=== PATIENT | female | born 1945 | race African-American/Black ===

== ENCOUNTER 2017-02-18 17:10 | Emergency (ER) | payer MEDICARE, OTHER ==
[~2017-02-18] VITALS: Ht 152.4 cm; Wt 70.0 kg
[~2017-02-18 17:10] MED LIST: AMLO5TAB88 PO; CETI5TAB5 PO; DEXL60CA3 PO; FENO145 PO; FERR-43 PO; FLONAS NS; FLUT1DIS IH; HYDR-4092 PO; NITR0.4T SL; NITROPASTE TOP; OMEP20CA10 PO; PHEN100C4 PO; PRAV10TA35 PO; ZOLP10TA6 PO
[2017-02-18] MEDS ORDERED: HYDROCODONE/ACETAMINOPHEN 5/325MG TABLET PO STA (17:46)
[2017-02-18 18:13] LABS: BASOPHILS % 0.7 % (0.0-2.0); EOSINOPHILS % 1.8 % (0.0-5.0); HEMOGLOBIN. 11.1 g/dL (12.0-16.0); LYMPHOCYTES % 12.7 % (20.0-50.0); MEAN CORPUSCULAR HEMOGLOBIN 27.4 pg (28.0-32.0); MEAN CORPUSCULAR VOLUME 81.7 fL (81.0-99.0); MEAN PLATELET VOLUME 8.1 fl (7.4-10.4); MONOCYTES % 10.9 % (2.0-8.0); NEUTROPHILS % 73.9 % (40.0-76.0); PLATELET 324 x1000/uL (130-400); RED BLOOD CELL COUNT 4.04 mill/uL (4.2-5.4); RED CELL DISTRIBUTION WIDTH 15.8 % (11.6-14.6)
[2017-02-18 18:15] LABS: CHLORIDE 112 mEq/L (98-107)
[2017-02-18 18:16] LABS: INR 0.9; PROTHROMBIN TIME 9.6 sec
[2017-02-18 18:18] LABS: CARBON DIOXIDE 19 mEq/L (21-32)
[2017-02-18 18:26] LABS: TROPONIN I 0.02 ng/mL (0.00-0.04)
[2017-02-18 21:20] VITALS: BP 158/80
== END 2017-02-18 22:30 | disposition home or self-care (01) ==
LOC: ER 17:10
DX: R07.89 Other chest pain (principal); M79.601 Pain in right arm; M79.602 Pain in left arm; D72.829 Elevated white blood cell count, unspecified; R74.8 Abnormal levels of other serum enzymes; R79.89 Other specified abnormal findings of blood chemistry; Z79.899 Other long term (current) drug therapy; Z88.6 Allergy status to analgesic agent; Z88.5 Allergy status to narcotic agent; Z88.8 Allergy status to other drugs, medicaments and biological substances; Z91.013 Allergy to seafood
CPT/HCPCS: 36415; 71010; 80053; 83880; 84484; 85025; 85610; 93005; 99285

== ENCOUNTER 2017-06-11 18:56 | Inpatient (IN) | payer MEDICARE, MEDICAID, OTHER ==
[~2017-06-11] VITALS: Ht 167.6 cm; Wt 78.0 kg
[2017-06-11 23:16] LABS: EOSINOPHILS % 1.6 % (0.0-5.0); HEMATOCRIT. 35.4 % (36.0-48.0); HEMOGLOBIN. 11.6 g/dL (12.0-16.0); LYMPHOCYTES % 13.9 % (20.0-50.0); MEAN CORPUSCULAR HEMOGLOBIN 27.7 pg (28.0-32.0); MEAN CORPUSCULAR VOLUME 84.5 fL (81.0-99.0); MEAN PLATELET VOLUME 8.2 fl (7.4-10.4); NEUTROPHILS % 75.5 % (40.0-76.0); PLATELET 337 x1000/uL (130-400); RED BLOOD CELL COUNT 4.19 mill/uL (4.2-5.4); RED CELL DISTRIBUTION WIDTH 14.1 % (11.6-14.6)
[2017-06-11 23:23] LABS: PARTIAL THROMBOPLASTIN TIME 25.7 sec (23.4-31.0); PROTHROMBIN TIME 10.1 sec (9.4-11.6)
[2017-06-11 23:31] LABS: CARBON DIOXIDE 19 mEq/L (21-32); CHLORIDE 114 mEq/L (98-107); TROPONIN I < 0.02 ng/mL (0.00-0.04)
[2017-06-12] VITALS (13 sets, daily range): BP systolic 137–190; BP diastolic 52–103
[2017-06-12] MEDS ORDERED: CLOPIDOGREL 75MG TABLET PO ONE
[2017-06-12] MEDS ORDERED: CLONIDINE 0.1MG TABLET PO PRN ×2 (06:00→09:00)
[2017-06-12] MEDS ORDERED: AMLODIPINE 5MG TABLET PO SCH ×2 (06:00→11:00)
[2017-06-12] MEDS ORDERED: NITROGLYCERIN 0.4MG TABLET SL SL PRN (06:00)
[2017-06-12] MEDS ORDERED: CLONIDINE 0.1MG TABLET PO SCH (06:00)
[2017-06-12] MEDS ORDERED: LABETALOL 5MG/ML SYR 20 MG/4 ML SYRINGE IV SCH (06:00)
[2017-06-12] MEDS ORDERED: LOSARTAN POTASSIUM 25 MG TABLET PO SCH (07:00)
[2017-06-12] MEDS ORDERED: ONDANSETRON HCL 4MG/2ML VIAL IV PRN (09:00)
[2017-06-12] MEDS ORDERED: ACETAMINOPHEN 325MG TABLET PO PRN (09:00)
[2017-06-12] MEDS ORDERED: LORAZEPAM 0.5MG TABLET PO PRN (09:00)
[2017-06-12] MEDS ORDERED: HYDROMORPHONE HCL/PF 2MG/ML CPJ IV PRN (09:00)
[2017-06-12] MEDS ORDERED: PANTOPRAZOLE 40MG DR TABLET PO ONE (09:15)
[2017-06-12] MEDS ORDERED: OMEPRAZOLE 20MG CAPSULE EXTENDED RELEASE PO SCH ×2 (09:15)
[2017-06-12] MEDS: LOSARTAN POTASSIUM 50 MG TABLET PO SCH (10:44)
[2017-06-12] MEDS ORDERED: NITROGLYCERIN 0.4MG/HR PATCH TOP SCH (11:00)
[2017-06-12] MEDS ORDERED: SODIUM CHL 0.45% + KCL 20MEQ/L 1,000 ML IV SCH (11:00)
[2017-06-12] MEDS ORDERED: DEXTROSE 50% WATER 50ML SYRINGE IV PRN (12:00)
[2017-06-12 12:05] LABS: CHLORIDE 113 mEq/L (98-107)
[2017-06-12] MEDS: INSULIN LISPRO 100 UNITS/ML SUBCUT SCH ×4 (12:17→20:46)
[2017-06-12] MEDS: BLOOD SUGAR DIAGNOSTIC STRIP TEST SCH ×3 (12:17→20:34)
[2017-06-12 12:22] LABS: CARBON DIOXIDE 18 mEq/L (21-32); HDL CHOLESTEROL 39 mg/dL (40-59); LDL CHOLESTEROL 96 mg/dL (5-100)
[2017-06-12] MEDS ORDERED: DIPHENHYDRAMINE 50MG/ML VIAL ONE (12:42)
[2017-06-12] MEDS ORDERED: DEXAMETHASONE 4MG/ML 1ML VIAL ONE (12:56)
[2017-06-12] MEDS ORDERED: EPINEPHRINE 1:1000 1 MG/ML AMP IM SCH (13:00)
[2017-06-12] MEDS ORDERED: RACEPINEPHRINE 2.25% 0.5ML NEB VIAL HHN PRN (13:00)
[2017-06-12] MEDS ORDERED: DEXAMETHASONE 10 MG/ML VIAL IV SCH (13:00)
[2017-06-12] MEDS ORDERED: EPINEPHRINE 1:1000 1 MG/ML AMP IM ONE (13:00)
[2017-06-12] MEDS ORDERED: IPRATROPIUM/ALBUTEROL 0.5-3(2.5)MG/3ML NEB HHN PRN ×2 (13:00)
[2017-06-12] MEDS ORDERED: DIPHENHYDRAMINE 50MG/ML VIAL IV SCH (13:00)
[2017-06-12] MEDS ORDERED: DIPHENHYDRAMINE 50MG/ML VIAL IV PRN (13:30)
[2017-06-12] MEDS ORDERED: NON FORMULARY PATIENT HOME MED EA XX SCH (13:30)
[2017-06-12] MEDS ORDERED: MEDICATION NOT ON FORMULARY EA (Dexlansoprazole (Dexilant) 60 MG) PO SCH (13:30)
[2017-06-12 13:36] LABS: BG BASE EXCESS -7.4 mmol/L (-2.0-2.0); BG CARBOXYHEMOGLOBIN 0.1 % (0.5-1.5); BG DEOXYHEMOGLOBIN 2.2 % (0.0-5.0); BG HCO3 ACT 17.7 mmol/L (22.0-26.0); BG METHEMOGLOBIN 0.4 % (0.0-1.5); BG OXYGEN SATURATION 97.8 % (92.0-98.5); BG OXYHEMOGLOBIN 97.3 % (94.0-97.0); BG PCO2 34.6 mmHg (35.0-45.0); BG PH 7.326 (7.350-7.450); BG PO2 105.5 mmHg (75.0-100.0); BG SAMPLE SITE RIGHT RADIAL; BG TOTAL HEMOGLOBIN 12.4 g/dL (12.0-18.0); BG VENT MODE NASAL CANNULA
[2017-06-12] MEDS: PHENYTOIN SODIUM EXTENDED 100MG CAPSULE PO SCH ×2 (14:44→21:51)
[2017-06-12] MEDS: SODIUM CHLORIDE 0.45% 1,000 ML IV SCH (14:44)
[2017-06-12 15:31] LABS: BASOPHILS % 0.3 % (0.0-2.0); EOSINOPHILS % 0.3 % (0.0-5.0); HEMATOCRIT. 33.8 % (36.0-48.0); HEMOGLOBIN. 11.2 g/dL (12.0-16.0); LYMPHOCYTES % 20.6 % (20.0-50.0); MEAN CORPUSCULAR HEMOGLOBIN 28.1 pg (28.0-32.0); MEAN CORPUSCULAR VOLUME 84.8 fL (81.0-99.0); MEAN PLATELET VOLUME 8.6 fl (7.4-10.4); NEUTROPHILS % 69.8 % (40.0-76.0); PLATELET 345 x1000/uL (130-400); RED BLOOD CELL COUNT 3.98 mill/uL (4.2-5.4); RED CELL DISTRIBUTION WIDTH 14.1 % (11.6-14.6)
[2017-06-12 15:51] LABS: TROPONIN I < 0.02 ng/mL (0.00-0.04)
[2017-06-12] MEDS ORDERED: ENOXAPARIN 30MG/0.3ML SYR SUBCUT SCH (17:00)
[2017-06-12] MEDS: HYDRALAZINE 20MG/ML VIAL IV SCH (17:57)
[2017-06-12 18:55] LABS: CLARITY URINE CLEAR (CLEAR); COLOR URINE YELLOW (YELLOW); GLUCOSE URINE NEGATIVE (NEGATIVE); KETONES URINE NEGATIVE (NEGATIVE); LEUKOCYTE ESTERASE URINE NEGATIVE (NEGATIVE); NITRITE URINE NEGATIVE (NEGATIVE); OCCULT BLOOD URINE TRACE (NEGATIVE); PROTEIN URINE 3+ (NEGATIVE); SPECIFIC GRAVITY URINE 1.013 (1.005-1.030); UROBILINOGEN URINE 0.2 E.U./dL (0.2-1.0)
[2017-06-12 19:06] LABS: *AMPHETAMINES SCREEN URINE NEGATIVE (NEGATIVE); *BARBITURATES SCREEN URINE NEGATIVE (NEGATIVE); *BENZODIAZEPINES SCREEN URINE NEGATIVE (NEGATIVE); *COCAINE SCREEN URINE NEGATIVE (NEGATIVE); CANNABINOID URINE SCREEN NEGATIVE (NEGATIVE); METHADONE URINE SCREEN NEGATIVE (NEGATIVE); OPIATES URINE SCREEN NEGATIVE (NEGATIVE); PHENCYCLIDINE URINE SCREEN NEGATIVE (NEGATIVE)
[2017-06-12] MEDS: ATORVASTATIN CALCIUM 10MG TABLET PO SCH (20:34)
[2017-06-12] MEDS: FAMOTIDINE 20MG TABLET PO SCH (20:34)
[2017-06-12] MEDS: AMLODIPINE 5MG TABLET PO SCH (20:34)
[2017-06-12] MEDS: HYDRALAZINE HCL 25MG TABLET PO SCH (21:51)
[2017-06-12 23:21] LABS: CREATINE KINASE MB FRACTION 1.9 ng/mL (0.5-3.6); TROPONIN I 0.06 ng/mL (0.00-0.04)
[2017-06-13] VITALS (17 sets, daily range): BP systolic 119–154; BP diastolic 47–89
[2017-06-13] MEDS: SODIUM CHLORIDE 0.45% 1,000 ML IV SCH ×2 (00:13→09:55)
[2017-06-13] MEDS: PHENYTOIN SODIUM EXTENDED 100MG CAPSULE PO SCH ×3 (06:00→22:00)
[2017-06-13] MEDS: HYDRALAZINE 20MG/ML VIAL IV SCH ×3 (06:00→12:00)
[2017-06-13] MEDS: HYDRALAZINE HCL 25MG TABLET PO SCH ×3 (06:06→21:52)
[2017-06-13 06:07] LABS: BASOPHILS % 0.8 % (0.0-2.0); EOSINOPHILS % 1.3 % (0.0-5.0); HEMATOCRIT. 32.8 % (36.0-48.0); LYMPHOCYTES % 12.8 % (20.0-50.0); MEAN CORPUSCULAR HEMOGLOBIN 27.9 pg (28.0-32.0); MEAN CORPUSCULAR VOLUME 83.4 fL (81.0-99.0); MEAN PLATELET VOLUME 8.8 fl (7.4-10.4); MONOCYTES % 9.6 % (2.0-8.0); NEUTROPHILS % 75.5 % (40.0-76.0); PLATELET 322 x1000/uL (130-400); RED BLOOD CELL COUNT 3.93 mill/uL (4.2-5.4)
[2017-06-13 06:44] LABS: CHLORIDE 114 mEq/L (98-107)
[2017-06-13 06:58] LABS: CARBON DIOXIDE 17 mEq/L (21-32); PHOSPHORUS 3.7 mg/dL (2.5-4.9); TROPONIN I 0.04 ng/mL (0.00-0.04)
[2017-06-13] MEDS ORDERED: PANTOPRAZOLE 40MG DR TABLET PO SCH (07:50)
[2017-06-13] MEDS: LOSARTAN POTASSIUM 50 MG TABLET PO SCH (08:11)
[2017-06-13] MEDS: AMLODIPINE 5MG TABLET PO SCH ×2 (08:11→21:59)
[2017-06-13] MEDS ORDERED: LOSARTAN POTASSIUM 25 MG TABLET PO SCH (09:00)
[2017-06-13] MEDS: NITROGLYCERIN 0.4MG/HR PATCH TOP SCH (09:56)
[2017-06-13] MEDS: ATORVASTATIN CALCIUM 10MG TABLET PO SCH (21:52)
[2017-06-13] MEDS: FAMOTIDINE 20MG TABLET PO SCH (21:52)
[2017-06-14] VITALS (11 sets, daily range): BP systolic 108–161; BP diastolic 52–116
[2017-06-14] MEDS: ZOLPIDEM TARTRATE 5MG TABLET PO PRN (03:14)
[2017-06-14] MEDS: SODIUM CHLORIDE 0.45% 1,000 ML IV SCH ×2 (03:18→15:30)
[2017-06-14] MEDS ORDERED: DEXL60CA3 PO (04:51)
[2017-06-14] MEDS: PHENYTOIN SODIUM EXTENDED 100MG CAPSULE PO SCH ×3 (06:00→22:03)
[2017-06-14] MEDS: HYDRALAZINE HCL 25MG TABLET PO SCH ×3 (06:26→22:03)
[2017-06-14] MEDS: HYDROCODONE/ACETAMINOPHEN 5/325MG TABLET PO PRN (06:27)
[2017-06-14 07:37] LABS: BASOPHILS % 0.5 % (0.0-2.0); EOSINOPHILS % 1.1 % (0.0-5.0); HEMATOCRIT. 34.2 % (36.0-48.0); HEMOGLOBIN. 11.3 g/dL (12.0-16.0); LYMPHOCYTES % 13.1 % (20.0-50.0); MEAN CORPUSCULAR HEMOGLOBIN 28.1 pg (28.0-32.0); MEAN CORPUSCULAR VOLUME 84.5 fL (81.0-99.0); MEAN PLATELET VOLUME 8.9 fl (7.4-10.4); MONOCYTES % 8.7 % (2.0-8.0); NEUTROPHILS % 76.6 % (40.0-76.0); PLATELET 313 x1000/uL (130-400); RED BLOOD CELL COUNT 4.04 mill/uL (4.2-5.4); RED CELL DISTRIBUTION WIDTH 14.2 % (11.6-14.6)
[2017-06-14] MEDS: LOSARTAN POTASSIUM 50 MG TABLET PO SCH (09:02)
[2017-06-14] MEDS: AMLODIPINE 5MG TABLET PO SCH ×2 (09:02→22:03)
[2017-06-14] MEDS: NITROGLYCERIN 0.4MG/HR PATCH TOP SCH (09:03)
[2017-06-14] MEDS ORDERED: GUAIFENESIN 200MG/10ML SUGAR FREE UDC PO PRN (11:00)
[2017-06-14] MEDS ORDERED: PIPERACILLIN/TAZ 2.25G PREMIX 50 ML IV SCH (12:30)
[2017-06-14] MEDS: SODIUM CHLORIDE 45ML SPRAY NS SCH (16:20)
[2017-06-14] MEDS: PIPERACILLIN/TAZ 2.25G PREMIX 50 ML IV SCH (17:55)
[2017-06-14] MEDS: ATORVASTATIN CALCIUM 10MG TABLET PO SCH (22:03)
[2017-06-14] MEDS: FAMOTIDINE 20MG TABLET PO SCH (22:03)
[2017-06-15] VITALS (12 sets, daily range): BP systolic 109–169; BP diastolic 60–80
[2017-06-15] MEDS: PIPERACILLIN/TAZ 2.25G PREMIX 50 ML IV SCH ×2 (01:00→06:19)
[2017-06-15] MEDS: SODIUM CHLORIDE 45ML SPRAY NS SCH ×4 (01:00→22:49)
[2017-06-15] MEDS: ZOLPIDEM TARTRATE 5MG TABLET PO PRN (01:32)
[2017-06-15] MEDS: SODIUM CHLORIDE 0.45% 1,000 ML IV SCH ×2 (01:32→11:30)
[2017-06-15] MEDS: PHENYTOIN SODIUM EXTENDED 100MG CAPSULE PO SCH ×4 (06:19→21:04)
[2017-06-15] MEDS: HYDRALAZINE HCL 25MG TABLET PO SCH ×3 (06:20→21:26)
[2017-06-15 06:29] LABS: HEMATOCRIT. 32.6 % (36.0-48.0); HEMOGLOBIN. 10.9 g/dL (12.0-16.0); LYMPHOCYTES % 15.4 % (20.0-50.0); MEAN CORPUSCULAR HEMOGLOBIN 28.1 pg (28.0-32.0); MEAN CORPUSCULAR VOLUME 83.6 fL (81.0-99.0); MEAN PLATELET VOLUME 8.6 fl (7.4-10.4); NEUTROPHILS % 72.6 % (40.0-76.0); PLATELET 331 x1000/uL (130-400); RED CELL DISTRIBUTION WIDTH 14.2 % (11.6-14.6)
[2017-06-15] MEDS: AMLODIPINE 5MG TABLET PO SCH ×2 (08:43→21:26)
[2017-06-15] MEDS: NITROGLYCERIN 0.4MG/HR PATCH TOP SCH (08:43)
[2017-06-15] MEDS: LOSARTAN POTASSIUM 50 MG TABLET PO SCH (08:43)
[2017-06-15] MEDS ORDERED: LEVOFLOXACIN 500MG TABLET PO SCH (12:00)
[2017-06-15] MEDS: IPRATROPIUM/ALBUTEROL 0.5-3(2.5)MG/3ML NEB HHN SCH ×2 (14:43→21:28)
[2017-06-15 16:15] LABS: CLARITY URINE CLEAR (CLEAR); COLOR URINE YELLOW (YELLOW); GLUCOSE URINE NEGATIVE (NEGATIVE); KETONES URINE NEGATIVE (NEGATIVE); LEUKOCYTE ESTERASE URINE NEGATIVE (NEGATIVE); NITRITE URINE NEGATIVE (NEGATIVE); OCCULT BLOOD URINE NEGATIVE (NEGATIVE); PH URINE 5.5 (4.5-8.0); PROTEIN URINE 3+ (NEGATIVE); SPECIFIC GRAVITY URINE 1.013 (1.005-1.030); UROBILINOGEN URINE 0.2 E.U./dL (0.2-1.0)
[2017-06-15] MEDS: FAMOTIDINE 20MG TABLET PO SCH (21:25)
[2017-06-15] MEDS: ATORVASTATIN CALCIUM 10MG TABLET PO SCH (21:26)
[2017-06-15] MEDS: HYDROCODONE/ACETAMINOPHEN 5/325MG TABLET PO PRN (21:26)
[2017-06-16] VITALS (7 sets, daily range): BP systolic 103–178; BP diastolic 58–76
[2017-06-16] MEDS: HYDROCODONE/ACETAMINOPHEN 5/325MG TABLET PO PRN (02:06)
[2017-06-16] MEDS: IPRATROPIUM/ALBUTEROL 0.5-3(2.5)MG/3ML NEB HHN SCH ×2 (03:34→08:24)
[2017-06-16] MEDS: PHENYTOIN SODIUM EXTENDED 100MG CAPSULE PO SCH (06:00)
[2017-06-16] MEDS: SODIUM CHLORIDE 0.45% 1,000 ML IV SCH (06:05)
[2017-06-16] MEDS: HYDRALAZINE HCL 25MG TABLET PO SCH (06:15)
[2017-06-16 06:35] LABS: BASOPHILS % 0.8 % (0.0-2.0); EOSINOPHILS % 1.6 % (0.0-5.0); HEMATOCRIT. 32.4 % (36.0-48.0); HEMOGLOBIN. 10.8 g/dL (12.0-16.0); LYMPHOCYTES % 13.9 % (20.0-50.0); MEAN CORPUSCULAR HEMOGLOBIN 27.8 pg (28.0-32.0); MEAN CORPUSCULAR VOLUME 83.8 fL (81.0-99.0); MEAN PLATELET VOLUME 8.8 fl (7.4-10.4); MONOCYTES % 10.2 % (2.0-8.0); NEUTROPHILS % 73.5 % (40.0-76.0); PLATELET 321 x1000/uL (130-400); RED BLOOD CELL COUNT 3.87 mill/uL (4.2-5.4); RED CELL DISTRIBUTION WIDTH 14.2 % (11.6-14.6)
[2017-06-16] MEDS: SODIUM CHLORIDE 45ML SPRAY NS SCH (06:44)
[2017-06-16 07:04] LABS: HEPATITIS B SURFACE ANTIGEN NEGATIVE
[2017-06-16] MEDS: LOSARTAN POTASSIUM 50 MG TABLET PO SCH (08:51)
[2017-06-16] MEDS: AMLODIPINE 5MG TABLET PO SCH (08:51)
[2017-06-16] MEDS: NITROGLYCERIN 0.4MG/HR PATCH TOP SCH (08:51)
[2017-06-16] MEDS ORDERED: LEVOFLOXACIN 250MG TABLET PO SCH (11:00)
[2017-06-16 13:09] LABS: ALBUMIN 3.5 g/dL (2.9-4.4); ALPHA-1-GLOBULIN 0.2 g/dL (0.0-0.4); ALPHA-2-GLOBULIN 0.9 g/dL (0.4-1.0); BETA GLOBULIN 0.9 g/dL (0.7-1.3); GAMMA GLOBULINS 1.7 g/dL (0.4-1.8); GLOBULIN TOTAL 3.6 g/dL (2.2-3.9); M-SPIKE Not Observed g/dL (Not Observed); TOTAL PROTEIN SERUM 7.1 g/dL (6.0-8.5)
[2017-06-18 09:06] LABS: COMPLEMENT C3 120 mg/dL (82-167); GLOMERULAR BASEMENT MEMB AB 4 units (0-20)
[2017-06-18 13:12] LABS: ANTI-MYELOPEROXIDASE AB < 9.0 U/mL (0.0-9.0); ANTI-PROTEINASE 3 ABS < 3.5 U/mL (0.0-3.5)
[2017-06-18 15:07] LABS: COMPLEMENT TOTAL CH50 > 60 U/mL (42-60)
[2017-06-19 04:19] LABS: OVA & PARASITE EXAM Final report (.)
[2017-06-19 07:13] LABS: DOPAMINE PLASMA <30 pg/mL (0-48); EPINEPHRINE PLASMA 24 pg/mL (0-62); NOREPINEPHRINE PLASMA 591 pg/mL (0-874)
[2017-06-19 15:12] LABS: ATYPICAL P-ANCA <1:20 titer (Neg:<1:20); CYTOPLASMIC C-ANCA <1:20 titer (Neg:<1:20); PERINUCLEAR P-ANCA <1:20 titer (Neg:<1:20)
== END 2017-06-16 11:28 | disposition home or self-care (01) | DRG 280 ==
LOC: ER 20:30 → 6WST 23:53 → ENRESERV 06-12 07:00 → CVICU 06-12 13:05 → 5EST 06-13 11:06
PROVIDERS: ADMIT Internal Medicine Geriatric Medicine; ATTEND Internal Medicine Geriatric Medicine
DX: I21.4 Non-ST elevation (NSTEMI) myocardial infarction (principal); N17.0 Acute kidney failure with tubular necrosis; J96.00 Acute respiratory failure, unspecified whether with hypoxia or hypercapnia; E87.2 Acidosis; E46 Unspecified protein-calorie malnutrition; K75.9 Inflammatory liver disease, unspecified; N18.3 Chronic kidney disease, stage 3 (moderate); R16.0 Hepatomegaly, not elsewhere classified; I13.0 Hypertensive heart and chronic kidney disease with heart failure and stage 1 through stage 4 chronic kidney disease, or unspecified chronic kidney disease; I50.30 Unspecified diastolic (congestive) heart failure; T78.2XXA Anaphylactic shock, unspecified, initial encounter; I42.9 Cardiomyopathy, unspecified; I24.9 Acute ischemic heart disease, unspecified; M19.90 Unspecified osteoarthritis, unspecified site; F41.9 Anxiety disorder, unspecified; E86.0 Dehydration; E11.22 Type 2 diabetes mellitus with diabetic chronic kidney disease; G40.909 Epilepsy, unspecified, not intractable, without status epilepticus; E78.5 Hyperlipidemia, unspecified; J44.9 Chronic obstructive pulmonary disease, unspecified; N28.1 Cyst of kidney, acquired; D72.829 Elevated white blood cell count, unspecified; R31.9 Hematuria, unspecified; E87.8 Other disorders of electrolyte and fluid balance, not elsewhere classified; J30.1 Allergic rhinitis due to pollen; F17.210 Nicotine dependence, cigarettes, uncomplicated; I25.10 Atherosclerotic heart disease of native coronary artery without angina pectoris; J98.01 Acute bronchospasm; K21.9 Gastro-esophageal reflux disease without esophagitis; K52.9 Noninfective gastroenteritis and colitis, unspecified; L29.9 Pruritus, unspecified; M94.0 Chondrocostal junction syndrome [Tietze]; Z79.899 Other long term (current) drug therapy; Z82.49 Family history of ischemic heart disease and other diseases of the circulatory system; Z87.11 Personal history of peptic ulcer disease; Z88.5 Allergy status to narcotic agent; Z88.8 Allergy status to other drugs, medicaments and biological substances; Z91.19 Patient's noncompliance with other medical treatment and regimen; Z90.49 Acquired absence of other specified parts of digestive tract; Z68.27 Body mass index [BMI] 27.0-27.9, adult; Z88.6 Allergy status to analgesic agent; Z91.041 Radiographic dye allergy status; Z91.013 Allergy to seafood; Z79.1 Long term (current) use of non-steroidal anti-inflammatories (NSAID); Z90.710 Acquired absence of both cervix and uterus
CPT/HCPCS: 36415; 36600; 71010; 74000; 76700; 80048; 80053; 80061; 80185; 80305; 81001; 82270; 82375; 82553; 82570; 82595; 82805; 82962; 83036; 83520; 83690; 83735; 84100; 84155; 84156; 84165; 84443; 84484; 84550; 85025; 85610; 85651; 85730; 86038; 86160; 86162; 86256; 86430; 86592; 86803; 87015; 87040; 87045; 87070; 87086; 87177; 87186; 87209; 87340; 87427; 87449; 87493; 89055; 93005; 93306; 93970; 94640; 94664; 99285; J0171; J0360; J1100; J1200; J1650; J2405; J2543; J3480; J7030; J7620; A4315

== ENCOUNTER 2017-07-01 09:33 | Inpatient (IN) | payer MEDICARE, OTHER ==
[~2017-07-01] VITALS: Ht 154.9 cm; Wt 73.9 kg
[~2017-07-01 09:33] MED LIST changes: -AMLO5TAB88 PO
[2017-07-01 10:30] LABS: BASOPHILS % 0.6 % (0.0-2.0); EOSINOPHILS % 1.1 % (0.0-5.0); HEMATOCRIT. 33.3 % (36.0-48.0); LYMPHOCYTES % 8.1 % (20.0-50.0); MEAN CORPUSCULAR VOLUME 84.3 fL (81.0-99.0); MEAN PLATELET VOLUME 8.2 fl (7.4-10.4); NEUTROPHILS % 84.2 % (40.0-76.0); PLATELET 354 x1000/uL (130-400); RED BLOOD CELL COUNT 3.95 mill/uL (4.2-5.4); RED CELL DISTRIBUTION WIDTH 14.5 % (11.6-14.6)
[2017-07-01 10:40] LABS: PARTIAL THROMBOPLASTIN TIME 25.7 sec (23.4-31.0); PROTHROMBIN TIME 10.1 sec (9.4-11.6)
[2017-07-01 10:44] LABS: CARBON DIOXIDE 20 mEq/L (21-32); CHLORIDE 109 mEq/L (98-107)
[2017-07-01 10:48] LABS: TROPONIN I 0.04 ng/mL (0.00-0.04)
[2017-07-01] MEDS ORDERED: ENOXAPARIN 60MG/0.6ML SYR SUBCUT ONE (11:00)
[2017-07-01] MEDS: NITROGLYCERIN 0.4MG TABLET SL SL PRN ×3 (14:36→16:38)
[2017-07-01] MEDS: CLONIDINE 0.1MG TABLET PO SCH ×3 (15:22→23:27)
[2017-07-01 17:21] VITALS: BP 173/64
[2017-07-01] MEDS ORDERED: MAGNESIUM/ALUMINUM HYDROXIDE/SIMETHICONE 30ML UDC PO PRN (18:15)
[2017-07-01] MEDS ORDERED: ONDANSETRON HCL 4MG/2ML VIAL IV PRN (18:15)
[2017-07-01] MEDS ORDERED: CLONIDINE 0.1MG TABLET PO PRN (18:15)
[2017-07-01] MEDS ORDERED: IPRATROPIUM/ALBUTEROL 0.5-3(2.5)MG/3ML NEB INH PRN (18:15)
[2017-07-01] MEDS ORDERED: HYDROMORPHONE HCL/PF 2MG/ML CPJ IV PRN (18:15)
[2017-07-01] MEDS ORDERED: ENOXAPARIN 40MG/0.4ML SYR SUBCUT SCH (18:15)
[2017-07-01] MEDS ORDERED: ZOLPIDEM TARTRATE 5MG TABLET PO PRN (18:15)
[2017-07-01 18:17] VITALS: BP 173/64
[2017-07-01] MEDS ORDERED: NIFEDIPINE XL 60MG TAB PO NR (18:22)
[2017-07-01 20:00] VITALS: BP 142/61
[2017-07-01] MEDS ORDERED: ENOXAPARIN 30MG/0.3ML SYR SUBCUT SCH (20:00)
[2017-07-01] MEDS ORDERED: NITROGLYCERIN 0.4MG/HR PATCH TOP NR (20:00)
[2017-07-01] MEDS: AMLODIPINE 5MG TABLET PO SCH (20:48)
[2017-07-01] MEDS: SODIUM CHLORIDE 0.45% 1,000 ML IV SCH (20:48)
[2017-07-01] MEDS: HYDRALAZINE HCL 50MG TABLET PO SCH (20:56)
[2017-07-02] VITALS (9 sets, daily range): BP systolic 132–177; BP diastolic 55–85
[2017-07-02 00:45] LABS: CREATINE KINASE MB FRACTION 1.5 ng/mL (0.5-3.6); TROPONIN I 0.13 ng/mL (0.00-0.04)
[2017-07-02] MEDS: HYDRALAZINE HCL 50MG TABLET PO SCH ×3 (05:08→21:25)
[2017-07-02] MEDS: CLONIDINE 0.1MG TABLET PO SCH ×3 (05:08→17:23)
[2017-07-02] MEDS ORDERED: SODIUM CHLORIDE 0.45% 1,000 ML IV ONE (06:00)
[2017-07-02 06:33] LABS: BASOPHILS % 0.6 % (0.0-2.0); EOSINOPHILS % 1.2 % (0.0-5.0); HEMATOCRIT. 29.8 % (36.0-48.0); HEMOGLOBIN. 9.9 g/dL (12.0-16.0); LYMPHOCYTES % 13.1 % (20.0-50.0); MEAN CORPUSCULAR HEMOGLOBIN 28.1 pg (28.0-32.0); MEAN CORPUSCULAR VOLUME 84.7 fL (81.0-99.0); MEAN PLATELET VOLUME 8.9 fl (7.4-10.4); MONOCYTES % 8.3 % (2.0-8.0); NEUTROPHILS % 76.8 % (40.0-76.0); PLATELET 350 x1000/uL (130-400); RED BLOOD CELL COUNT 3.52 mill/uL (4.2-5.4); RED CELL DISTRIBUTION WIDTH 14.8 % (11.6-14.6)
[2017-07-02 07:02] LABS: CARBON DIOXIDE 22 mEq/L (21-32); CHLORIDE 109 mEq/L (98-107); PHOSPHORUS 4.3 mg/dL (2.5-4.9)
[2017-07-02 07:09] LABS: CREATINE KINASE MB FRACTION 1.3 ng/mL (0.5-3.6)
[2017-07-02] MEDS: SODIUM CHLORIDE 0.45% 1,000 ML IV SCH ×2 (07:20→17:23)
[2017-07-02 07:30] LABS: CLARITY URINE CLEAR (CLEAR); COLOR URINE YELLOW (YELLOW); GLUCOSE URINE NEGATIVE (NEGATIVE); KETONES URINE NEGATIVE (NEGATIVE); LEUKOCYTE ESTERASE URINE NEGATIVE (NEGATIVE); NITRITE URINE NEGATIVE (NEGATIVE); OCCULT BLOOD URINE NEGATIVE (NEGATIVE); PH URINE 5.5 (4.5-8.0); PROTEIN URINE 3+ (NEGATIVE); SPECIFIC GRAVITY URINE 1.011 (1.005-1.030); UROBILINOGEN URINE 0.2 E.U./dL (0.2-1.0)
[2017-07-02 07:47] LABS: *AMPHETAMINES SCREEN URINE NEGATIVE (NEGATIVE); *BARBITURATES SCREEN URINE NEGATIVE (NEGATIVE); *BENZODIAZEPINES SCREEN URINE NEGATIVE (NEGATIVE); *COCAINE SCREEN URINE NEGATIVE (NEGATIVE); CANNABINOID URINE SCREEN NEGATIVE (NEGATIVE); METHADONE URINE SCREEN NEGATIVE (NEGATIVE); OPIATES URINE SCREEN PRESUMTIVE POSITIVE (NEGATIVE); PHENCYCLIDINE URINE SCREEN NEGATIVE (NEGATIVE)
[2017-07-02] MEDS ORDERED: FAMOTIDINE 20MG/2ML VIAL IV ONE (08:20)
[2017-07-02] MEDS ORDERED: DIPHENHYDRAMINE 50MG/ML VIAL ONE (08:20)
[2017-07-02] MEDS ORDERED: MIDAZOLAM HCL 2 MG/2 ML VIAL ONE (08:25)
[2017-07-02] MEDS ORDERED: FENTANYL CITRATE/PF 50MCG/ML 2ML VIAL ONE (08:25)
[2017-07-02] MEDS ORDERED: ATROPINE SULFATE 0.1MG/ML 10ML DISP.SYRIN ONE (08:52)
[2017-07-02] MEDS: AMLODIPINE 5MG TABLET PO SCH (09:00)
[2017-07-02] MEDS: NITROGLYCERIN 0.4MG/HR PATCH TOP SCH (09:00)
[2017-07-02] MEDS: NIFEDIPINE XL 60MG TAB PO SCH (09:00)
[2017-07-02] MEDS: DOCUSATE SODIUM 100MG CAPSULE PO SCH ×2 (09:00→17:00)
[2017-07-02] MEDS ORDERED: OMEPRAZOLE 20MG CAPSULE EXTENDED RELEASE PO NR (09:15)
[2017-07-02] MEDS ORDERED: IOVERSOL 240MG/ML 100ML BOTTLE IV ONE (09:21)
[2017-07-02] MEDS ORDERED: ATROPINE SULFATE 1MG/10ML SYR IV PRN (10:15)
[2017-07-02] MEDS: ACETAMINOPHEN 325MG TABLET PO PRN (11:34)
[2017-07-02] MEDS ORDERED: NITROGLYCERIN 50MCG/ML 10ML VIAL (CATH LAB) IV ONE (13:54)
[2017-07-02] MEDS ORDERED: NICARDIPINE 100MCG/ML 10ML VIAL (CATH LAB) IV ONE (13:54)
[2017-07-02] MEDS ORDERED: HEPARIN SODIUM 1,000 UNIT/1ML VIAL IV ONE (13:54)
[2017-07-02] MEDS: LACTOBACILLUS GG CAPSULE PO SCH (17:23)
[2017-07-02] MEDS ORDERED: ATORVASTATIN CALCIUM 10MG TABLET PO SCH (21:00)
[2017-07-03] VITALS (8 sets, daily range): BP systolic 139–173; BP diastolic 58–75
[2017-07-03] MEDS: CLONIDINE 0.1MG TABLET PO SCH ×3 (00:15→12:03)
[2017-07-03] MEDS: ACETAMINOPHEN 325MG TABLET PO PRN (00:23)
[2017-07-03] MEDS: HYDRALAZINE HCL 50MG TABLET PO SCH (05:51)
[2017-07-03] MEDS ORDERED: OMEPRAZOLE 20MG CAPSULE EXTENDED RELEASE PO SCH (06:50)
[2017-07-03 07:22] LABS: BASOPHILS % 0.6 % (0.0-2.0); EOSINOPHILS % 1.4 % (0.0-5.0); HEMOGLOBIN. 10.3 g/dL (12.0-16.0); LYMPHOCYTES % 14.7 % (20.0-50.0); MEAN CORPUSCULAR HEMOGLOBIN 28.1 pg (28.0-32.0); MEAN CORPUSCULAR VOLUME 84.1 fL (81.0-99.0); MEAN PLATELET VOLUME 8.9 fl (7.4-10.4); MONOCYTES % 8.2 % (2.0-8.0); NEUTROPHILS % 75.1 % (40.0-76.0); PLATELET 342 x1000/uL (130-400); RED BLOOD CELL COUNT 3.68 mill/uL (4.2-5.4); RED CELL DISTRIBUTION WIDTH 14.7 % (11.6-14.6)
[2017-07-03 08:40] LABS: TROPONIN I 0.38 ng/mL (0.00-0.04)
[2017-07-03] MEDS: DOCUSATE SODIUM 100MG CAPSULE PO SCH (08:47)
[2017-07-03] MEDS: LACTOBACILLUS GG CAPSULE PO SCH (08:59)
[2017-07-03] MEDS: NITROGLYCERIN 0.4MG/HR PATCH TOP SCH (08:59)
[2017-07-03] MEDS: NIFEDIPINE XL 60MG TAB PO SCH (08:59)
== END 2017-07-03 15:30 | disposition home or self-care (01) | DRG 287 ==
LOC: ER 09:40 → 6WST 10:56 → EDBEDREQ 10:58 → EDBEDREQTM 10:58 → ENRESERV 15:56 → CANBEDREQ 17:02 → 3WST 07-02 10:12
PROVIDERS: ADMIT Internal Medicine Geriatric Medicine; ATTEND Internal Medicine Geriatric Medicine
PROC: 4A023N7 Measurement of Cardiac Sampling and Pressure, Left Heart, Percutaneous Approach (ICD-10-PCS; principal; 2017-07-02)
PROC: B2111ZZ Fluoroscopy of Multiple Coronary Arteries using Low Osmolar Contrast (ICD-10-PCS; 2017-07-02)
DX: I25.10 Atherosclerotic heart disease of native coronary artery without angina pectoris (principal); N17.9 Acute kidney failure, unspecified; E87.2 Acidosis; E46 Unspecified protein-calorie malnutrition; I42.9 Cardiomyopathy, unspecified; I13.0 Hypertensive heart and chronic kidney disease with heart failure and stage 1 through stage 4 chronic kidney disease, or unspecified chronic kidney disease; B19.10 Unspecified viral hepatitis B without hepatic coma; I50.30 Unspecified diastolic (congestive) heart failure; I24.9 Acute ischemic heart disease, unspecified; I16.9 Hypertensive crisis, unspecified; K74.60 Unspecified cirrhosis of liver; J44.9 Chronic obstructive pulmonary disease, unspecified; D63.8 Anemia in other chronic diseases classified elsewhere; N18.3 Chronic kidney disease, stage 3 (moderate); G40.909 Epilepsy, unspecified, not intractable, without status epilepticus; E78.00 Pure hypercholesterolemia, unspecified; E11.22 Type 2 diabetes mellitus with diabetic chronic kidney disease; F17.210 Nicotine dependence, cigarettes, uncomplicated; G89.4 Chronic pain syndrome; E87.8 Other disorders of electrolyte and fluid balance, not elsewhere classified; M19.90 Unspecified osteoarthritis, unspecified site; E78.5 Hyperlipidemia, unspecified; K21.9 Gastro-esophageal reflux disease without esophagitis; Z82.49 Family history of ischemic heart disease and other diseases of the circulatory system; Z90.49 Acquired absence of other specified parts of digestive tract; Z88.8 Allergy status to other drugs, medicaments and biological substances; Z88.6 Allergy status to analgesic agent; Z88.5 Allergy status to narcotic agent; Z91.013 Allergy to seafood; Z68.30 Body mass index [BMI] 30.0-30.9, adult; Z71.6 Tobacco abuse counseling; Z90.710 Acquired absence of both cervix and uterus; Z79.899 Other long term (current) drug therapy
CPT/HCPCS: 36415; 71010; 80048; 80053; 80185; 80305; 81001; 82553; 82962; 83735; 83880; 84100; 84484; 85025; 85610; 85730; 86256; 87086; 93005; 93458; 97116; 97162; 97530; 99291; A6261; C1769; C1887; C1893; J0461; J1200; J1644; J1650; J2250; J3010; J3490; Q9967

== ENCOUNTER 2017-09-03 17:40 | Inpatient (IN) | payer MEDICARE, MEDICAID, OTHER ==
[~2017-09-03] VITALS: Ht 149.9 cm; Wt 72.6 kg
[2017-09-03 18:00] VITALS: BP 188/76
[2017-09-03] MEDS ORDERED: DEXTROSE 50% WATER 50ML SYRINGE IV PRN (19:15)
[2017-09-03] MEDS ORDERED: ACETAMINOPHEN 325MG TABLET PO PRN (19:15)
[2017-09-03] MEDS ORDERED: IPRATROPIUM/ALBUTEROL 0.5-3(2.5)MG/3ML NEB HHN PRN (19:15)
[2017-09-03] MEDS ORDERED: DIPHENHYDRAMINE 25MG CAPSULE PO PRN (19:15)
[2017-09-03] MEDS ORDERED: THROAT LOZENGES-BENZOCAINE/MENTH/CETYLPYRD CL LOZENGES MM PRN (19:15)
[2017-09-03 20:00] VITALS: BP 160/74
[2017-09-03] MEDS ORDERED: LACTULOSE 20G/30ML UDC PO PRN (21:00)
[2017-09-03] MEDS: INSULIN LISPRO 100 UNITS/ML SUBCUT SCH (21:00)
[2017-09-03] MEDS: BLOOD SUGAR DIAGNOSTIC STRIP TEST SCH (21:00)
[2017-09-03] MEDS: IPRATROPIUM/ALBUTEROL 0.5-3(2.5)MG/3ML NEB HHN SCH (21:49)
[2017-09-03] MEDS: PHENYTOIN SODIUM EXTENDED 100MG CAPSULE PO SCH (21:50)
[2017-09-03] MEDS: AMLODIPINE 5MG TABLET PO SCH (21:51)
[2017-09-03] MEDS: METOPROLOL TARTRATE 100MG TABLET PO SCH (21:51)
[2017-09-03] MEDS: MIRTAZAPINE 15MG TABLET PO SCH (21:51)
[2017-09-03] MEDS: CALCIUM CARBONATE 1250MG TABLET (500MG ELEMENTAL CALCIUM) PO SCH (22:04)
[2017-09-04] VITALS: BP 138/69
[2017-09-04] MEDS: IPRATROPIUM/ALBUTEROL 0.5-3(2.5)MG/3ML NEB HHN SCH ×7 (04:00→23:40)
[2017-09-04] MEDS: GUAIFENESIN 200MG/10ML SUGAR FREE UDC PO SCH ×4 (04:13→18:00)
[2017-09-04] MEDS: METRONIDAZOLE 250MG TABLET PO SCH ×4 (04:13→18:22)
[2017-09-04] MEDS: PHENYTOIN SODIUM EXTENDED 100MG CAPSULE PO SCH ×3 (06:23→21:13)
[2017-09-04] MEDS: BACITRACIN ZINC 15GM TUBE TOP SCH ×3 (06:26→21:12)
[2017-09-04 06:37] LABS: BASOPHILS % 0.8 % (0.0-2.0); HEMATOCRIT. 29.8 % (36.0-48.0); LYMPHOCYTES % 10.3 % (20.0-50.0); MEAN CORPUSCULAR HEMOGLOBIN 30.7 pg (28.0-32.0); MEAN CORPUSCULAR VOLUME 91.3 fL (81.0-99.0); MEAN PLATELET VOLUME 8.1 fl (7.4-10.4); MONOCYTES % 13.2 % (2.0-8.0); NEUTROPHILS % 73.7 % (40.0-76.0); PLATELET 229 x1000/uL (130-400); RED BLOOD CELL COUNT 3.26 mill/uL (4.2-5.4); RED CELL DISTRIBUTION WIDTH 16.3 % (11.6-14.6)
[2017-09-04 08:00] VITALS: BP 158/83
[2017-09-04] MEDS: HYDROCODONE/ACETAMINOPHEN 5/325MG TABLET PO PRN ×2 (08:51→15:27)
[2017-09-04] MEDS: METOPROLOL TARTRATE 100MG TABLET PO SCH ×2 (08:52→21:12)
[2017-09-04] MEDS: AMLODIPINE 5MG TABLET PO SCH ×2 (08:52→21:12)
[2017-09-04] MEDS: FERROUS SULFATE 325MG TABLET PO SCH ×3 (08:53→18:22)
[2017-09-04] MEDS: FAMOTIDINE 20MG TABLET PO SCH (08:53)
[2017-09-04] MEDS: CALCIUM CARBONATE 1250MG TABLET (500MG ELEMENTAL CALCIUM) PO SCH ×2 (08:53→18:22)
[2017-09-04] MEDS: LACTOBACILLUS GG CAPSULE PO SCH (08:53)
[2017-09-04] MEDS: NYSTATIN POWDER 15GM TOP SCH ×3 (08:54→18:23)
[2017-09-04] MEDS: CHOLESTYRAMINE/SUCROSE 4G POWDER PACKET PO SCH ×2 (08:54→18:22)
[2017-09-04] MEDS: NYSTATIN/TRIAMCIN CREAM 15GM TOP SCH ×3 (08:54→18:23)
[2017-09-04] MEDS: FOLIC ACID/VITAMIN B COMP W-C TABLET PO SCH (08:59)
[2017-09-04] MEDS: INSULIN LISPRO 100 UNITS/ML SUBCUT SCH ×2 (09:00→21:00)
[2017-09-04] MEDS: BLOOD SUGAR DIAGNOSTIC STRIP TEST SCH ×2 (09:00→21:18)
[2017-09-04 10:54] VITALS: BP 132/73
[2017-09-04 20:00] VITALS: BP 121/65
[2017-09-04] MEDS: MIRTAZAPINE 15MG TABLET PO SCH (21:12)
[2017-09-05] MEDS: METRONIDAZOLE 250MG TABLET PO SCH ×5 (00:16→23:10)
[2017-09-05] MEDS: HYDROCODONE/ACETAMINOPHEN 5/325MG TABLET PO PRN (00:29)
[2017-09-05] MEDS: IPRATROPIUM/ALBUTEROL 0.5-3(2.5)MG/3ML NEB HHN SCH ×5 (03:43→21:38)
[2017-09-05] MEDS: ONDANSETRON HCL 4MG TABLET PO PRN (05:06)
[2017-09-05] MEDS: GUAIFENESIN 200MG/10ML SUGAR FREE UDC PO SCH ×2 (05:07)
[2017-09-05] MEDS: PHENYTOIN SODIUM EXTENDED 100MG CAPSULE PO SCH ×3 (05:07→21:07)
[2017-09-05 06:46] LABS: BASOPHILS % 0.9 % (0.0-2.0); EOSINOPHILS % 2.1 % (0.0-5.0); HEMATOCRIT. 32.8 % (36.0-48.0); HEMOGLOBIN. 10.9 g/dL (12.0-16.0); LYMPHOCYTES % 9.6 % (20.0-50.0); MEAN CORPUSCULAR HEMOGLOBIN 30.1 pg (28.0-32.0); MEAN CORPUSCULAR VOLUME 91.2 fL (81.0-99.0); MEAN PLATELET VOLUME 8.3 fl (7.4-10.4); MONOCYTES % 13.5 % (2.0-8.0); NEUTROPHILS % 73.9 % (40.0-76.0); PLATELET 242 x1000/uL (130-400); RED CELL DISTRIBUTION WIDTH 16.5 % (11.6-14.6)
[2017-09-05 08:00] VITALS: BP 155/70
[2017-09-05] MEDS: BLOOD SUGAR DIAGNOSTIC STRIP TEST SCH ×2 (09:00→21:07)
[2017-09-05] MEDS: INSULIN LISPRO 100 UNITS/ML SUBCUT SCH ×2 (09:00→21:00)
[2017-09-05] MEDS: FOLIC ACID/VITAMIN B COMP W-C TABLET PO SCH (09:17)
[2017-09-05] MEDS: METOPROLOL TARTRATE 100MG TABLET PO SCH ×2 (09:18→20:25)
[2017-09-05] MEDS: LACTOBACILLUS GG CAPSULE PO SCH (09:19)
[2017-09-05] MEDS: FERROUS SULFATE 325MG TABLET PO SCH ×3 (09:19→17:45)
[2017-09-05] MEDS: FAMOTIDINE 20MG TABLET PO SCH (09:20)
[2017-09-05] MEDS: CALCIUM CARBONATE 1250MG TABLET (500MG ELEMENTAL CALCIUM) PO SCH ×2 (09:20→17:45)
[2017-09-05] MEDS: BACITRACIN ZINC 15GM TUBE TOP SCH ×2 (09:23→20:26)
[2017-09-05] MEDS: AMLODIPINE 5MG TABLET PO SCH ×2 (09:23→20:25)
[2017-09-05] MEDS: CHOLESTYRAMINE/SUCROSE 4G POWDER PACKET PO SCH ×2 (09:24→17:45)
[2017-09-05] MEDS: NYSTATIN POWDER 15GM TOP SCH ×3 (09:24→17:46)
[2017-09-05] MEDS: NYSTATIN/TRIAMCIN CREAM 15GM TOP SCH ×3 (09:24→17:46)
[2017-09-05] MEDS: LOPERAMIDE HCL 2MG CAPSULE PO PRN (10:17)
[2017-09-05 20:00] VITALS: BP 160/67
[2017-09-05] MEDS: ENOXAPARIN 80MG/0.8ML SYR SUBCUT SCH (20:00)
[2017-09-05] MEDS: MIRTAZAPINE 15MG TABLET PO SCH (20:24)
[2017-09-05 22:50] VITALS: BP 156/75
[2017-09-06] MEDS: IPRATROPIUM/ALBUTEROL 0.5-3(2.5)MG/3ML NEB HHN SCH ×6 (04:00→20:52)
[2017-09-06] MEDS: METRONIDAZOLE 250MG TABLET PO SCH ×4 (06:00→23:47)
[2017-09-06] MEDS: PHENYTOIN SODIUM EXTENDED 100MG CAPSULE PO SCH ×4 (06:00→22:00)
[2017-09-06] MEDS ORDERED: ONDANSETRON HCL 4MG/2ML VIAL IV PRN (07:30)
[2017-09-06 08:02] VITALS: BP 181/72
[2017-09-06] MEDS: INSULIN LISPRO 100 UNITS/ML SUBCUT SCH ×3 (08:14→21:00)
[2017-09-06 08:47] LABS: BASOPHILS % 1.1 % (0.0-2.0); EOSINOPHILS % 3.4 % (0.0-5.0); HEMATOCRIT. 31.6 % (36.0-48.0); HEMOGLOBIN. 10.7 g/dL (12.0-16.0); MEAN CORPUSCULAR HEMOGLOBIN 30.8 pg (28.0-32.0); MEAN CORPUSCULAR VOLUME 91.3 fL (81.0-99.0); MEAN PLATELET VOLUME 8.1 fl (7.4-10.4); MONOCYTES % 14.2 % (2.0-8.0); NEUTROPHILS % 71.3 % (40.0-76.0); PLATELET 295 x1000/uL (130-400); RED BLOOD CELL COUNT 3.46 mill/uL (4.2-5.4); RED CELL DISTRIBUTION WIDTH 16.1 % (11.6-14.6)
[2017-09-06 08:49] LABS: INR 1.1; PROTHROMBIN TIME 11.3 sec (9.4-11.6)
[2017-09-06] MEDS: BLOOD SUGAR DIAGNOSTIC STRIP TEST SCH ×2 (09:40→21:00)
[2017-09-06] MEDS: NYSTATIN POWDER 15GM TOP SCH ×3 (10:28→18:26)
[2017-09-06] MEDS: BACITRACIN ZINC 15GM TUBE TOP SCH ×2 (10:28→22:50)
[2017-09-06] MEDS: NYSTATIN/TRIAMCIN CREAM 15GM TOP SCH ×3 (10:29→18:26)
[2017-09-06 11:25] LABS: CHLORIDE 106 mEq/L (98-107)
[2017-09-06 12:03] LABS: CARBON DIOXIDE 22 mEq/L (21-32)
[2017-09-06] MEDS ORDERED: PREDNISONE 20MG TABLET PO ONE (13:30)
[2017-09-06] MEDS: LACTOBACILLUS GG CAPSULE PO SCH (14:51)
[2017-09-06] MEDS: FAMOTIDINE 20MG TABLET PO SCH (14:52)
[2017-09-06] MEDS: FERROUS SULFATE 325MG TABLET PO SCH ×3 (14:52→18:14)
[2017-09-06] MEDS: CALCIUM CARBONATE 1250MG TABLET (500MG ELEMENTAL CALCIUM) PO SCH ×2 (14:54→18:15)
[2017-09-06] MEDS: FOLIC ACID/VITAMIN B COMP W-C TABLET PO SCH (14:54)
[2017-09-06] MEDS: CHOLESTYRAMINE/SUCROSE 4G POWDER PACKET PO SCH ×3 (14:57→18:27)
[2017-09-06] MEDS: METOPROLOL TARTRATE 100MG TABLET PO SCH ×2 (15:01→23:47)
[2017-09-06] MEDS: AMLODIPINE 5MG TABLET PO SCH ×2 (15:01→23:46)
[2017-09-06 20:00] VITALS: BP 138/67
[2017-09-06] MEDS: ENOXAPARIN 80MG/0.8ML SYR SUBCUT SCH (20:00)
[2017-09-06] MEDS: HYDROCODONE/ACETAMINOPHEN 5/325MG TABLET PO PRN (22:50)
[2017-09-06] MEDS: MIRTAZAPINE 15MG TABLET PO SCH (23:47)
[2017-09-07 00:35] VITALS: BP 157/81
[2017-09-07] MEDS: IPRATROPIUM/ALBUTEROL 0.5-3(2.5)MG/3ML NEB HHN SCH ×6 (00:46→21:27)
[2017-09-07] MEDS ORDERED: PREDNISONE 20MG TABLET PO ONE ×2 (02:30→09:30)
[2017-09-07] MEDS: PHENYTOIN SODIUM EXTENDED 100MG CAPSULE PO SCH ×3 (05:33→22:00)
[2017-09-07] MEDS: METRONIDAZOLE 250MG TABLET PO SCH ×3 (05:33→18:40)
[2017-09-07 06:09] LABS: HEMATOCRIT. 33.1 % (36.0-48.0); HEMOGLOBIN. 11.1 g/dL (12.0-16.0); MEAN CORPUSCULAR HEMOGLOBIN 30.5 pg (28.0-32.0); MEAN CORPUSCULAR VOLUME 91.6 fL (81.0-99.0); MEAN PLATELET VOLUME 8.3 fl (7.4-10.4); PLATELET 259 x1000/uL (130-400); RED BLOOD CELL COUNT 3.62 mill/uL (4.2-5.4); RED CELL DISTRIBUTION WIDTH 16.5 % (11.6-14.6)
[2017-09-07 08:00] VITALS: BP 145/66
[2017-09-07] MEDS: INSULIN LISPRO 100 UNITS/ML SUBCUT SCH ×2 (09:00→21:00)
[2017-09-07] MEDS: BLOOD SUGAR DIAGNOSTIC STRIP TEST SCH ×2 (09:12→21:00)
[2017-09-07] MEDS: CHOLESTYRAMINE/SUCROSE 4G POWDER PACKET PO SCH ×2 (09:17→17:05)
[2017-09-07] MEDS: FERROUS SULFATE 325MG TABLET PO SCH ×3 (09:18→17:08)
[2017-09-07] MEDS: FOLIC ACID/VITAMIN B COMP W-C TABLET PO SCH (09:19)
[2017-09-07] MEDS: CALCIUM CARBONATE 1250MG TABLET (500MG ELEMENTAL CALCIUM) PO SCH ×2 (09:19→17:09)
[2017-09-07] MEDS: NYSTATIN/TRIAMCIN CREAM 15GM TOP SCH ×3 (09:20→17:13)
[2017-09-07] MEDS: NYSTATIN POWDER 15GM TOP SCH ×3 (09:20→17:13)
[2017-09-07] MEDS: AMLODIPINE 5MG TABLET PO SCH ×2 (09:22→22:24)
[2017-09-07] MEDS: LACTOBACILLUS GG CAPSULE PO SCH (09:22)
[2017-09-07] MEDS: FAMOTIDINE 20MG TABLET PO SCH (09:22)
[2017-09-07] MEDS: BACITRACIN ZINC 15GM TUBE TOP SCH ×2 (09:22→22:24)
[2017-09-07] MEDS: METOPROLOL TARTRATE 100MG TABLET PO SCH ×2 (09:22→22:23)
[2017-09-07] MEDS ORDERED: DIPHENHYDRAMINE 50MG/ML VIAL IV NR (09:30)
[2017-09-07 10:24] LABS: PLATELET ESTIMATE NORMAL
[2017-09-07] MEDS ORDERED: HYDROCORTISONE 20MG TABLET PO SCH (13:30)
[2017-09-07] MEDS: ENOXAPARIN 80MG/0.8ML SYR SUBCUT SCH (20:00)
[2017-09-07 20:06] VITALS: BP 136/82
[2017-09-07] MEDS: MIRTAZAPINE 15MG TABLET PO SCH (22:23)
[2017-09-07] MEDS ORDERED: BACITRACIN ZINC OINT UDPKT TOP SCH (23:30)
[2017-09-08] MEDS: METRONIDAZOLE 250MG TABLET PO SCH ×5 (00:58→23:09)
[2017-09-08] MEDS ORDERED: HYDROCORTISONE 20MG TABLET PO SCH ×2 (02:30→09:30)
[2017-09-08] MEDS: IPRATROPIUM/ALBUTEROL 0.5-3(2.5)MG/3ML NEB HHN SCH ×6 (03:58→20:00)
[2017-09-08] MEDS: PHENYTOIN SODIUM EXTENDED 100MG CAPSULE PO SCH ×3 (06:00→21:39)
[2017-09-08 08:00] VITALS: BP 159/82
[2017-09-08] MEDS: BLOOD SUGAR DIAGNOSTIC STRIP TEST SCH ×2 (09:00→20:54)
[2017-09-08] MEDS: INSULIN LISPRO 100 UNITS/ML SUBCUT SCH ×2 (09:00→20:54)
[2017-09-08] MEDS: BACITRACIN ZINC OINT UDPKT TOP SCH ×2 (09:00→20:31)
[2017-09-08] MEDS ORDERED: DIPHENHYDRAMINE 50MG/ML VIAL IV NR (09:30)
[2017-09-08] MEDS: CHOLESTYRAMINE/SUCROSE 4G POWDER PACKET PO SCH ×2 (09:53→17:17)
[2017-09-08] MEDS: LACTOBACILLUS GG CAPSULE PO SCH (09:53)
[2017-09-08] MEDS: AMLODIPINE 5MG TABLET PO SCH ×2 (09:54→20:30)
[2017-09-08] MEDS: CALCIUM CARBONATE 1250MG TABLET (500MG ELEMENTAL CALCIUM) PO SCH ×2 (09:54→17:17)
[2017-09-08] MEDS: METOPROLOL TARTRATE 100MG TABLET PO SCH ×3 (09:54→23:53)
[2017-09-08] MEDS: FAMOTIDINE 20MG TABLET PO SCH (09:54)
[2017-09-08] MEDS: FERROUS SULFATE 325MG TABLET PO SCH ×3 (09:54→17:17)
[2017-09-08] MEDS: FOLIC ACID/VITAMIN B COMP W-C TABLET PO SCH (09:54)
[2017-09-08] MEDS: NYSTATIN POWDER 15GM TOP SCH ×3 (09:55→17:19)
[2017-09-08 09:57] LABS: HEMATOCRIT 34.5 % (36.0-48.0); MEAN CORPUSCULAR HEMOGLOBIN 29.3 pg (28.0-32.0); MEAN CORPUSCULAR VOLUME 91.5 fL (81.0-99.0); PLATELET 380 x1000/uL (130-400); RED BLOOD CELL COUNT 3.77 mill/uL (4.2-5.4); RED CELL DISTRIBUTION WIDTH 15.4 % (11.6-14.6)
[2017-09-08] MEDS: NYSTATIN/TRIAMCIN CREAM 15GM TOP SCH ×3 (09:57→17:20)
[2017-09-08] MEDS ORDERED: IOHEXOL-300 100 ML BOTTLE ONE (12:56)
[2017-09-08] MEDS ORDERED: MIDAZOLAM HCL 2 MG/2 ML VIAL ONE (13:09)
[2017-09-08] MEDS: HYDROCODONE/ACETAMINOPHEN 5/325MG TABLET PO PRN ×2 (14:30→22:06)
[2017-09-08] MEDS: HYDROMORPHONE HCL/PF 2MG/ML CPJ IV PRN (17:20)
[2017-09-08 20:00] VITALS: BP 153/78
[2017-09-08] MEDS: ENOXAPARIN 80MG/0.8ML SYR SUBCUT SCH (20:29)
[2017-09-08] MEDS: MIRTAZAPINE 15MG TABLET PO SCH (20:30)
[2017-09-08 22:00] VITALS: BP 141/59
[2017-09-09] MEDS: IPRATROPIUM/ALBUTEROL 0.5-3(2.5)MG/3ML NEB HHN SCH ×4 (01:57→16:00)
[2017-09-09] MEDS: HYDROMORPHONE HCL/PF 2MG/ML CPJ IV PRN ×2 (03:32→12:58)
[2017-09-09 04:40] VITALS: BP 144/61
[2017-09-09] MEDS: PHENYTOIN SODIUM EXTENDED 100MG CAPSULE PO SCH ×3 (06:00→22:00)
[2017-09-09] MEDS: METRONIDAZOLE 250MG TABLET PO SCH ×4 (06:08→23:51)
[2017-09-09 08:00] VITALS: BP 181/70
[2017-09-09] MEDS: HYDRALAZINE HCL 25MG TABLET PO SCH ×3 (08:30→22:00)
[2017-09-09] MEDS: FAMOTIDINE 20MG TABLET PO SCH (08:49)
[2017-09-09] MEDS: AMLODIPINE 5MG TABLET PO SCH ×2 (08:50→21:00)
[2017-09-09] MEDS: FOLIC ACID/VITAMIN B COMP W-C TABLET PO SCH (08:51)
[2017-09-09] MEDS: HYDROCODONE/ACETAMINOPHEN 5/325MG TABLET PO PRN ×2 (08:51→17:06)
[2017-09-09] MEDS: HYDRALAZINE HCL 10MG TABLET PO PRN ×2 (08:51→17:06)
[2017-09-09] MEDS: CALCIUM CARBONATE 1250MG TABLET (500MG ELEMENTAL CALCIUM) PO SCH ×2 (08:52→17:06)
[2017-09-09] MEDS: CHOLESTYRAMINE/SUCROSE 4G POWDER PACKET PO SCH ×2 (08:52→17:06)
[2017-09-09] MEDS: NYSTATIN/TRIAMCIN CREAM 15GM TOP SCH ×3 (08:52→17:08)
[2017-09-09] MEDS: FERROUS SULFATE 325MG TABLET PO SCH ×3 (08:52→17:05)
[2017-09-09] MEDS: NYSTATIN POWDER 15GM TOP SCH ×3 (08:52→17:08)
[2017-09-09] MEDS: BACITRACIN ZINC OINT UDPKT TOP SCH (08:53)
[2017-09-09] MEDS: BLOOD SUGAR DIAGNOSTIC STRIP TEST SCH ×2 (08:54→20:46)
[2017-09-09] MEDS: METOPROLOL TARTRATE 100MG TABLET PO SCH ×2 (08:54→21:00)
[2017-09-09] MEDS: LACTOBACILLUS GG CAPSULE PO SCH (08:54)
[2017-09-09] MEDS: INSULIN LISPRO 100 UNITS/ML SUBCUT SCH ×2 (08:56→20:45)
[2017-09-09 09:17] LABS: BASOPHILS % 0.8 % (0.0-2.0); EOSINOPHILS % 2.3 % (0.0-5.0); HEMATOCRIT. 31.9 % (36.0-48.0); HEMOGLOBIN. 10.5 g/dL (12.0-16.0); LYMPHOCYTES % 16.9 % (20.0-50.0); MEAN CORPUSCULAR VOLUME 90.9 fL (81.0-99.0); MEAN PLATELET VOLUME 8.3 fl (7.4-10.4); PLATELET 383 x1000/uL (130-400); RED BLOOD CELL COUNT 3.51 mill/uL (4.2-5.4); RED CELL DISTRIBUTION WIDTH 15.8 % (11.6-14.6)
[2017-09-09 10:52] VITALS: BP 138/76
[2017-09-09] MEDS ORDERED: POTASSIUM CHLORIDE 20MEQ TABLET SR PO NR (11:15)
[2017-09-09 20:00] VITALS: BP 108/58
[2017-09-09] MEDS: ENOXAPARIN 80MG/0.8ML SYR SUBCUT SCH (20:42)
[2017-09-09] MEDS: BACITRACIN ZINC 15GM TUBE TOP SCH (20:42)
[2017-09-09] MEDS: MIRTAZAPINE 15MG TABLET PO SCH (23:51)
[2017-09-10] MEDS: HYDRALAZINE HCL 25MG TABLET PO SCH ×3 (05:39→22:27)
[2017-09-10] MEDS: METRONIDAZOLE 250MG TABLET PO SCH ×3 (05:39→18:43)
[2017-09-10] MEDS: PHENYTOIN SODIUM EXTENDED 100MG CAPSULE PO SCH ×4 (05:39→22:34)
[2017-09-10] MEDS: ONDANSETRON HCL 4MG TABLET PO PRN (05:39)
[2017-09-10 08:00] VITALS: BP 138/58
[2017-09-10 08:01] LABS: BASOPHILS % 1.2 % (0.0-2.0); EOSINOPHILS % 2.5 % (0.0-5.0); HEMATOCRIT. 30.1 % (36.0-48.0); HEMOGLOBIN. 9.9 g/dL (12.0-16.0); LYMPHOCYTES % 13.7 % (20.0-50.0); MEAN CORPUSCULAR HEMOGLOBIN 30.4 pg (28.0-32.0); MEAN CORPUSCULAR VOLUME 92.2 fL (81.0-99.0); MEAN PLATELET VOLUME 8.2 fl (7.4-10.4); NEUTROPHILS % 68.6 % (40.0-76.0); PLATELET 338 x1000/uL (130-400); RED BLOOD CELL COUNT 3.26 mill/uL (4.2-5.4); RED CELL DISTRIBUTION WIDTH 15.6 % (11.6-14.6)
[2017-09-10] MEDS: BACITRACIN ZINC 15GM TUBE TOP SCH ×2 (09:00→21:21)
[2017-09-10] MEDS: NYSTATIN POWDER 15GM TOP SCH ×3 (09:00→17:00)
[2017-09-10] MEDS: BLOOD SUGAR DIAGNOSTIC STRIP TEST SCH ×2 (09:00→21:18)
[2017-09-10] MEDS: NYSTATIN/TRIAMCIN CREAM 15GM TOP SCH ×3 (09:00→17:00)
[2017-09-10] MEDS: FAMOTIDINE 20MG TABLET PO SCH (09:58)
[2017-09-10] MEDS: LACTOBACILLUS GG CAPSULE PO SCH (09:59)
[2017-09-10] MEDS: FERROUS SULFATE 325MG TABLET PO SCH ×3 (09:59→18:43)
[2017-09-10] MEDS: FOLIC ACID/VITAMIN B COMP W-C TABLET PO SCH (09:59)
[2017-09-10] MEDS: CALCIUM CARBONATE 1250MG TABLET (500MG ELEMENTAL CALCIUM) PO SCH ×2 (09:59→18:43)
[2017-09-10] MEDS: METOPROLOL TARTRATE 100MG TABLET PO SCH ×2 (10:00→21:00)
[2017-09-10] MEDS: AMLODIPINE 5MG TABLET PO SCH ×2 (10:00→21:00)
[2017-09-10] MEDS: CHOLESTYRAMINE/SUCROSE 4G POWDER PACKET PO SCH ×2 (10:01→18:44)
[2017-09-10] MEDS: HYDROCODONE/ACETAMINOPHEN 5/325MG TABLET PO PRN ×2 (10:06→21:20)
[2017-09-10] MEDS: INSULIN LISPRO 100 UNITS/ML SUBCUT SCH ×2 (10:21→21:00)
[2017-09-10] MEDS: LOPERAMIDE HCL 2MG CAPSULE PO PRN (12:53)
[2017-09-10 20:00] VITALS: BP 112/50
[2017-09-10] MEDS: MIRTAZAPINE 15MG TABLET PO SCH (21:18)
[2017-09-11] VITALS (13 sets, daily range): BP systolic 102–150; BP diastolic 58–81
[2017-09-11] MEDS: METRONIDAZOLE 250MG TABLET PO SCH (00:02)
[2017-09-11] MEDS: HYDROCODONE/ACETAMINOPHEN 5/325MG TABLET PO PRN ×3 (04:46→21:16)
[2017-09-11] MEDS: HYDRALAZINE HCL 25MG TABLET PO SCH ×3 (06:00→22:00)
[2017-09-11 06:44] LABS: PROTHROMBIN TIME 10.6 sec (9.4-11.6)
[2017-09-11 06:54] LABS: BASOPHILS % 0.6 % (0.0-2.0); EOSINOPHILS % 2.1 % (0.0-5.0); HEMOGLOBIN. 8.7 g/dL (12.0-16.0); LYMPHOCYTES % 9.2 % (20.0-50.0); MEAN CORPUSCULAR HEMOGLOBIN 30.1 pg (28.0-32.0); MEAN PLATELET VOLUME 7.9 fl (7.4-10.4); MONOCYTES % 12.2 % (2.0-8.0); NEUTROPHILS % 75.9 % (40.0-76.0); PLATELET 380 x1000/uL (130-400); RED BLOOD CELL COUNT 2.89 mill/uL (4.2-5.4); RED CELL DISTRIBUTION WIDTH 15.1 % (11.6-14.6)
[2017-09-11 07:37] LABS: PHOSPHORUS 2.3 mg/dL (2.5-4.9)
[2017-09-11] MEDS ORDERED: LIDOCAINE HCL 1% 20ML VIAL (Pyxis) INJ ONE ×2 (08:02→10:49)
[2017-09-11] MEDS ORDERED: HEPARIN 1000 UNITS/ML 10ML ONE (08:02)
[2017-09-11] MEDS ORDERED: SODIUM BICARBONATE 4% (2.4MEQ) 5ML VIAL IV ONE (08:02)
[2017-09-11] MEDS: LACTOBACILLUS GG CAPSULE PO SCH (08:30)
[2017-09-11] MEDS: FAMOTIDINE 20MG TABLET PO SCH (08:30)
[2017-09-11] MEDS: FERROUS SULFATE 325MG TABLET PO SCH ×3 (08:30→16:23)
[2017-09-11] MEDS: CALCIUM CARBONATE 1250MG TABLET (500MG ELEMENTAL CALCIUM) PO SCH ×2 (08:30→16:23)
[2017-09-11] MEDS: CHOLESTYRAMINE/SUCROSE 4G POWDER PACKET PO SCH ×2 (08:30→16:23)
[2017-09-11] MEDS: FOLIC ACID/VITAMIN B COMP W-C TABLET PO SCH (08:30)
[2017-09-11] MEDS: ONDANSETRON HCL 4MG TABLET PO PRN (08:58)
[2017-09-11] MEDS: BLOOD SUGAR DIAGNOSTIC STRIP TEST SCH ×2 (09:00→21:31)
[2017-09-11] MEDS: METOPROLOL TARTRATE 100MG TABLET PO SCH ×2 (09:00→21:00)
[2017-09-11] MEDS: AMLODIPINE 5MG TABLET PO SCH ×2 (09:00→21:00)
[2017-09-11] MEDS: INSULIN LISPRO 100 UNITS/ML SUBCUT SCH ×2 (09:00→21:00)
[2017-09-11] MEDS: NYSTATIN POWDER 15GM TOP SCH ×3 (09:58→16:24)
[2017-09-11] MEDS: NYSTATIN/TRIAMCIN CREAM 15GM TOP SCH ×3 (09:59→16:24)
[2017-09-11] MEDS: BACITRACIN ZINC 15GM TUBE TOP SCH ×2 (09:59→21:31)
[2017-09-11] MEDS ORDERED: CEFAZOLIN 1000MG PREMIX 50 ML IV SCH (10:30)
[2017-09-11] MEDS ORDERED: FENTANYL CITRATE/PF 50MCG/ML 2ML VIAL IV ONE (10:35)
[2017-09-11] MEDS ORDERED: CEFAZOLIN 1000MG PREMIX 50 ML IV ONE ×2 (10:45→11:00)
[2017-09-11] MEDS ORDERED: FENTANYL CITRATE/PF 50MCG/ML 2ML VIAL ONE (10:45)
[2017-09-11] MEDS: PHENYTOIN SODIUM EXTENDED 100MG CAPSULE PO SCH ×2 (14:00→21:31)
[2017-09-11] MEDS ORDERED: POTASSIUM-SODIUM PHOSPHATE POWDER PACKET PO NR (16:45)
[2017-09-11] MEDS ORDERED: EPOETIN ALFA 4000UNITS/ML VIAL SUBCUT SCH (21:00)
[2017-09-11] MEDS: MIRTAZAPINE 15MG TABLET PO SCH (21:16)
[2017-09-12] MEDS: HYDROCODONE/ACETAMINOPHEN 5/325MG TABLET PO PRN ×2 (05:41→09:08)
[2017-09-12 06:49] LABS: BASOPHILS % 1.2 % (0.0-2.0); EOSINOPHILS % 2.6 % (0.0-5.0); HEMATOCRIT. 25.6 % (36.0-48.0); HEMOGLOBIN. 8.7 g/dL (12.0-16.0); LYMPHOCYTES % 12.9 % (20.0-50.0); MEAN CORPUSCULAR HEMOGLOBIN 30.7 pg (28.0-32.0); MEAN CORPUSCULAR VOLUME 90.4 fL (81.0-99.0); MEAN PLATELET VOLUME 7.9 fl (7.4-10.4); MONOCYTES % 14.4 % (2.0-8.0); NEUTROPHILS % 68.9 % (40.0-76.0); PLATELET 384 x1000/uL (130-400); RED BLOOD CELL COUNT 2.84 mill/uL (4.2-5.4); RED CELL DISTRIBUTION WIDTH 15.2 % (11.6-14.6)
[2017-09-12 08:00] VITALS: BP 122/65
[2017-09-12 08:21] LABS: PHOSPHORUS 2.1 mg/dL (2.5-4.9)
[2017-09-12] MEDS ORDERED: EPOETIN ALFA 10000UNITS/ML VIAL SUBCUT ONE (08:30)
[2017-09-12] MEDS ORDERED: ENOXAPARIN 80MG/0.8ML SYR SUBCUT SCH (09:00)
[2017-09-12] MEDS: INSULIN LISPRO 100 UNITS/ML SUBCUT SCH (09:00)
[2017-09-12] MEDS: FOLIC ACID/VITAMIN B COMP W-C TABLET PO SCH (09:03)
[2017-09-12] MEDS: FAMOTIDINE 20MG TABLET PO SCH (09:03)
[2017-09-12] MEDS: CHOLESTYRAMINE/SUCROSE 4G POWDER PACKET PO SCH (09:03)
[2017-09-12] MEDS: AMLODIPINE 5MG TABLET PO SCH (09:04)
[2017-09-12] MEDS: FERROUS SULFATE 325MG TABLET PO SCH (09:04)
[2017-09-12] MEDS: LACTOBACILLUS GG CAPSULE PO SCH (09:04)
[2017-09-12] MEDS: CALCIUM CARBONATE 1250MG TABLET (500MG ELEMENTAL CALCIUM) PO SCH (09:04)
[2017-09-12] MEDS: METOPROLOL TARTRATE 100MG TABLET PO SCH (09:05)
[2017-09-12] MEDS: NYSTATIN/TRIAMCIN CREAM 15GM TOP SCH (09:34)
[2017-09-12] MEDS: BACITRACIN ZINC 15GM TUBE TOP SCH (09:34)
[2017-09-12] MEDS: BLOOD SUGAR DIAGNOSTIC STRIP TEST SCH (09:35)
[2017-09-12] MEDS: NYSTATIN POWDER 15GM TOP SCH (09:35)
[2017-09-12 12:40] VITALS: BP 138/82
[2017-09-12 12:49] VITALS: BP 138/82
[2017-09-12] MEDS ORDERED: EPOETIN ALFA 10000UNITS/ML VIAL SUBCUT SCH (21:00)
[2017-09-15] MEDS ORDERED: HYDROCORTISONE 20MG TABLET PO SCH (02:30)
== END 2017-09-12 13:25 | disposition home health service (06) | DRG 252 ==
PROVIDERS: ADMIT Psychiatry & Neurology Neurology; ATTEND Internal Medicine Geriatric Medicine
PROC: 5A1D70Z Performance of Urinary Filtration, Intermittent, Less than 6 Hours Per Day (ICD-10-PCS; 2017-09-03)
PROC: 5A1D70Z Performance of Urinary Filtration, Intermittent, Less than 6 Hours Per Day (ICD-10-PCS; 2017-09-05)
PROC: 06H03DZ Insertion of Intraluminal Device into Inferior Vena Cava, Percutaneous Approach (ICD-10-PCS; principal; 2017-09-08)
PROC: 5A1D70Z Performance of Urinary Filtration, Intermittent, Less than 6 Hours Per Day (ICD-10-PCS; 2017-09-08)
PROC: 5A1D70Z Performance of Urinary Filtration, Intermittent, Less than 6 Hours Per Day (ICD-10-PCS; 2017-09-09)
PROC: 5A1D70Z Performance of Urinary Filtration, Intermittent, Less than 6 Hours Per Day (ICD-10-PCS; 2017-09-10)
PROC: 02HV33Z Insertion of Infusion Device into Superior Vena Cava, Percutaneous Approach (ICD-10-PCS; 2017-09-11)
PROC: B5181ZA Fluoroscopy of Superior Vena Cava using Low Osmolar Contrast, Guidance (ICD-10-PCS; 2017-09-11)
PROC: B548ZZA Ultrasonography of Superior Vena Cava, Guidance (ICD-10-PCS; 2017-09-11)
DX: I25.10 Atherosclerotic heart disease of native coronary artery without angina pectoris (principal); G93.40 Encephalopathy, unspecified; N17.0 Acute kidney failure with tubular necrosis; J96.00 Acute respiratory failure, unspecified whether with hypoxia or hypercapnia; E46 Unspecified protein-calorie malnutrition; I13.2 Hypertensive heart and chronic kidney disease with heart failure and with stage 5 chronic kidney disease, or end stage renal disease; E87.2 Acidosis; L89.323 Pressure ulcer of left buttock, stage 3; B37.41 Candidal cystitis and urethritis; N18.6 End stage renal disease; I82.411 Acute embolism and thrombosis of right femoral vein; I50.30 Unspecified diastolic (congestive) heart failure; E11.22 Type 2 diabetes mellitus with diabetic chronic kidney disease; G40.909 Epilepsy, unspecified, not intractable, without status epilepticus; J44.9 Chronic obstructive pulmonary disease, unspecified; M19.90 Unspecified osteoarthritis, unspecified site; K21.9 Gastro-esophageal reflux disease without esophagitis; R53.81 Other malaise; E83.39 Other disorders of phosphorus metabolism; F41.9 Anxiety disorder, unspecified; E87.6 Hypokalemia; R80.9 Proteinuria, unspecified; G89.4 Chronic pain syndrome; F32.9 Major depressive disorder, single episode, unspecified; D63.8 Anemia in other chronic diseases classified elsewhere; E11.40 Type 2 diabetes mellitus with diabetic neuropathy, unspecified; F06.8 Other specified mental disorders due to known physiological condition; F06.31 Mood disorder due to known physiological condition with depressive features; B19.20 Unspecified viral hepatitis C without hepatic coma; Z82.49 Family history of ischemic heart disease and other diseases of the circulatory system; Z99.2 Dependence on renal dialysis; Z86.718 Personal history of other venous thrombosis and embolism; Z87.11 Personal history of peptic ulcer disease; Z87.891 Personal history of nicotine dependence; Z87.440 Personal history of urinary (tract) infections; Z88.9 Allergy status to unspecified drugs, medicaments and biological substances; Z91.19 Patient's noncompliance with other medical treatment and regimen; Z95.1 Presence of aortocoronary bypass graft; Z79.84 Long term (current) use of oral hypoglycemic drugs; Z79.899 Other long term (current) drug therapy; Z88.8 Allergy status to other drugs, medicaments and biological substances; Z88.6 Allergy status to analgesic agent; Z91.041 Radiographic dye allergy status; Z91.013 Allergy to seafood
CPT/HCPCS: 36100; 36415; 36558; 36589; 37191; 75825; 77001; 80048; 80053; 82962; 84100; 85025; 85027; 85610; 85730; 92610; 93970; 94640; 97110; 97116; 97163; 97166; 97530; 97535; A4657; A6261; C1750; C1760; C1769; C1880; J0690; J0885; J1170; J1200; J1642; J1644; J1650; J1815; J2250; J2405; J3010; J3490; J7030; J7050; J7620; Q0162; Q9967

== ENCOUNTER 2017-11-03 21:59 | Emergency (ER) | payer MEDICARE, OTHER ==
[~2017-11-03] VITALS: Ht 167.6 cm; Wt 71.0 kg
[2017-11-04 00:45] LABS: BASOPHILS % 0.4 % (0.0-2.0); EOSINOPHILS % 1.2 % (0.0-5.0); HEMATOCRIT. 32.9 % (36.0-48.0); HEMOGLOBIN. 10.4 g/dL (12.0-16.0); LYMPHOCYTES % 12.7 % (20.0-50.0); MEAN CORPUSCULAR HEMOGLOBIN 27.9 pg (28.0-32.0); MEAN PLATELET VOLUME 7.9 fl (7.4-10.4); MONOCYTES % 8.9 % (2.0-8.0); NEUTROPHILS % 76.8 % (40.0-76.0); PLATELET 387 x1000/uL (130-400); RED BLOOD CELL COUNT 3.73 mill/uL (4.2-5.4); RED CELL DISTRIBUTION WIDTH 15.1 % (11.6-14.6)
[2017-11-04 01:01] LABS: TROPONIN I 0.36 ng/mL (0.00-0.04)
[2017-11-04 07:43] VITALS: BP 126/75
== END 2017-11-04 08:46 | disposition home or self-care (01) ==
LOC: ER 22:05
DX: I20.8 Other forms of angina pectoris (principal); I11.0 Hypertensive heart disease with heart failure; E11.9 Type 2 diabetes mellitus without complications; E78.00 Pure hypercholesterolemia, unspecified; Z88.5 Allergy status to narcotic agent; Z88.6 Allergy status to analgesic agent; Z91.013 Allergy to seafood; Z88.8 Allergy status to other drugs, medicaments and biological substances
CPT/HCPCS: 36415; 71045; 80048; 84484; 85025; 93005; 99285

== ENCOUNTER 2017-11-07 01:03 | Inpatient (IN) | payer MEDICARE, OTHER ==
[~2017-11-07] VITALS: Ht 152.4 cm; Wt 63.5 kg
[2017-11-07] MEDS ORDERED: NITROGLYCERIN 0.4MG TABLET SL SL PRN ×3 (02:15→11:15)
[2017-11-07 02:48] LABS: BASOPHILS % 0.7 % (0.0-2.0); EOSINOPHILS % 1.5 % (0.0-5.0); HEMATOCRIT. 37.5 % (36.0-48.0); HEMOGLOBIN. 12.2 g/dL (12.0-16.0); MEAN CORPUSCULAR HEMOGLOBIN 28.8 pg (28.0-32.0); MEAN CORPUSCULAR VOLUME 88.5 fL (81.0-99.0); MEAN PLATELET VOLUME 8.2 fl (7.4-10.4); MONOCYTES % 9.3 % (2.0-8.0); NEUTROPHILS % 72.5 % (40.0-76.0); PLATELET 400 x1000/uL (130-400); RED BLOOD CELL COUNT 4.24 mill/uL (4.2-5.4); RED CELL DISTRIBUTION WIDTH 15.4 % (11.6-14.6)
[2017-11-07 02:55] LABS: PROTHROMBIN TIME 10.3 sec (9.4-11.6)
[2017-11-07 02:59] LABS: CHLORIDE 104 mEq/L (98-107); TROPONIN I 0.24 ng/mL (0.00-0.04)
[2017-11-07] MEDS ORDERED: HEPARIN 5000 UNITS/ML VIAL IV SCH (05:48)
[2017-11-07] MEDS ORDERED: HEPARIN 5000 UNITS/ML VIAL IV PRN ×2 (05:49→05:50)
[2017-11-07] MEDS ORDERED: HEPARIN 25,000 UNITS PREMIX 500 ML IV PRN (06:00)
[2017-11-07 08:00] VITALS: BP 147/79
[2017-11-07] MEDS ORDERED: IPRATROPIUM/ALBUTEROL 0.5-3(2.5)MG/3ML NEB HHN SCH (08:30)
[2017-11-07] MEDS ORDERED: HYDROMORPHONE HCL/PF 2MG/ML CPJ IV PRN (08:30)
[2017-11-07] MEDS ORDERED: ACETAMINOPHEN 325MG TABLET PO PRN (08:30)
[2017-11-07] MEDS ORDERED: ONDANSETRON HCL 4MG/2ML VIAL IV PRN (08:30)
[2017-11-07] MEDS ORDERED: IPRATROPIUM/ALBUTEROL 0.5-3(2.5)MG/3ML NEB HHN PRN (08:45)
[2017-11-07] MEDS ORDERED: HYDROCODONE/ACETAMINOPHEN 5/325MG TABLET PO PRN (08:45)
[2017-11-07] MEDS: FLUTICASONE PROPIONATE 50MCG/SPRAY BOTTLE BOTHNSTRLS SCH (09:00)
[2017-11-07] MEDS ORDERED: NITROGLYCERIN 0.4MG/HR PATCH TOP SCH (09:00)
[2017-11-07] MEDS: ENOXAPARIN 30MG/0.3ML SYR SUBCUT SCH (10:02)
[2017-11-07] MEDS: FERROUS SULFATE 325MG TABLET PO SCH (10:03)
[2017-11-07] MEDS: AMLODIPINE 5MG TABLET PO SCH ×2 (10:03→23:07)
[2017-11-07] MEDS: FAMOTIDINE 20MG/2ML VIAL IV SCH (10:03)
[2017-11-07 10:21] VITALS: BP 147/79
[2017-11-07] MEDS ORDERED: LIDOCAINE HCL/PF 1% 10 MG/ML 5ML VIAL ONE (10:27)
[2017-11-07] MEDS: NITROGLYCERIN OINT 1GM/INCH UDPKT TD SCH ×3 (11:00→23:08)
[2017-11-07] MEDS ORDERED: INFLUENZA VIRUS VACCINE 0.5ML SYR IM ONE (11:15)
[2017-11-07] MEDS ORDERED: PNEUMOCOCCAL 23-VAL P-SAC VAC 0.5 ML IM ONE (11:15)
[2017-11-07 12:00] VITALS: BP 151/77
[2017-11-07 15:13] LABS: CREATINE KINASE MB FRACTION 1.2 ng/mL (0.5-3.6); TROPONIN I 0.36 ng/mL (0.00-0.04)
[2017-11-07] MEDS: IPRATROPIUM/ALBUTEROL 0.5-3(2.5)MG/3ML NEB HHN SCH ×2 (15:22→21:00)
[2017-11-07 16:00] VITALS: BP 148/76
[2017-11-07 20:00] VITALS: BP 129/72
[2017-11-07] MEDS: FENOFIBRATE NANOCRYSTALLIZED 145MG TABLET PO SCH (23:07)
[2017-11-08] VITALS: BP 138/79
[2017-11-08 00:32] LABS: CREATINE KINASE MB FRACTION 0.8 ng/mL (0.5-3.6); TROPONIN I 0.39 ng/mL (0.00-0.04)
[2017-11-08] MEDS: IPRATROPIUM/ALBUTEROL 0.5-3(2.5)MG/3ML NEB HHN SCH ×2 (01:20→20:24)
[2017-11-08 04:00] VITALS: BP 126/76
[2017-11-08] MEDS: NITROGLYCERIN OINT 1GM/INCH UDPKT TD SCH ×3 (07:10→21:53)
[2017-11-08 07:15] LABS: BASOPHILS % 0.8 % (0.0-2.0); EOSINOPHILS % 2.2 % (0.0-5.0); HEMATOCRIT. 32.8 % (36.0-48.0); HEMOGLOBIN. 10.7 g/dL (12.0-16.0); LYMPHOCYTES % 34.1 % (20.0-50.0); MEAN CORPUSCULAR HEMOGLOBIN 28.8 pg (28.0-32.0); MEAN CORPUSCULAR VOLUME 88.1 fL (81.0-99.0); MEAN PLATELET VOLUME 7.9 fl (7.4-10.4); MONOCYTES % 10.7 % (2.0-8.0); NEUTROPHILS % 52.2 % (40.0-76.0); PLATELET 416 x1000/uL (130-400); RED BLOOD CELL COUNT 3.73 mill/uL (4.2-5.4); RED CELL DISTRIBUTION WIDTH 15.2 % (11.6-14.6)
[2017-11-08 07:38] LABS: TROPONIN I 0.32 ng/mL (0.00-0.04)
[2017-11-08 08:00] VITALS: BP 140/71
[2017-11-08] MEDS: FUROSEMIDE 40MG TABLET PO SCH (08:23)
[2017-11-08] MEDS: FLUTICASONE PROPIONATE 50MCG/SPRAY BOTTLE BOTHNSTRLS SCH (08:24)
[2017-11-08] MEDS: FERROUS SULFATE 325MG TABLET PO SCH (08:24)
[2017-11-08] MEDS: AMLODIPINE 5MG TABLET PO SCH ×2 (08:24→21:53)
[2017-11-08] MEDS: ENOXAPARIN 30MG/0.3ML SYR SUBCUT SCH (08:24)
[2017-11-08 12:00] VITALS: BP 129/80
[2017-11-08] MEDS: FAMOTIDINE 20MG/2ML VIAL IV SCH (12:54)
[2017-11-08 16:00] VITALS: BP 108/76
[2017-11-08 20:00] VITALS: BP 118/62
[2017-11-08] MEDS: FENOFIBRATE NANOCRYSTALLIZED 145MG TABLET PO SCH (21:53)
[2017-11-08 22:28] LABS: CLARITY URINE TURBID (CLEAR); COLOR URINE YELLOW (YELLOW); KETONES URINE TRACE (NEGATIVE); LEUKOCYTE ESTERASE URINE 3+ (NEGATIVE); NITRITE URINE NEGATIVE (NEGATIVE); OCCULT BLOOD URINE 1+ (NEGATIVE); PROTEIN URINE 3+ (NEGATIVE); SPECIFIC GRAVITY URINE 1.016 (1.005-1.030); UROBILINOGEN URINE 0.2 E.U./dL (0.2-1.0)
[2017-11-08 22:42] LABS: *AMPHETAMINES SCREEN URINE NEGATIVE (NEGATIVE); *BARBITURATES SCREEN URINE NEGATIVE (NEGATIVE); *BENZODIAZEPINES SCREEN URINE NEGATIVE (NEGATIVE); *COCAINE SCREEN URINE NEGATIVE (NEGATIVE); CANNABINOID URINE SCREEN NEGATIVE (NEGATIVE); METHADONE URINE SCREEN NEGATIVE (NEGATIVE); OPIATES URINE SCREEN PRESUMTIVE POSITIVE (NEGATIVE); PHENCYCLIDINE URINE SCREEN NEGATIVE (NEGATIVE)
[2017-11-09] VITALS: BP 107/71
[2017-11-09] MEDS: IPRATROPIUM/ALBUTEROL 0.5-3(2.5)MG/3ML NEB HHN SCH (01:14)
[2017-11-09 04:00] VITALS: BP 119/79
[2017-11-09] MEDS: NITROGLYCERIN OINT 1GM/INCH UDPKT TD SCH (06:41)
[2017-11-09 08:00] VITALS: BP 110/65
[2017-11-09] MEDS: AMLODIPINE 5MG TABLET PO SCH (08:35)
[2017-11-09] MEDS: FUROSEMIDE 40MG TABLET PO SCH (08:35)
[2017-11-09] MEDS: ENOXAPARIN 30MG/0.3ML SYR SUBCUT SCH (08:36)
[2017-11-09] MEDS: FERROUS SULFATE 325MG TABLET PO SCH (08:36)
[2017-11-09] MEDS: FLUTICASONE PROPIONATE 50MCG/SPRAY BOTTLE BOTHNSTRLS SCH (08:36)
[2017-11-09] MEDS: FAMOTIDINE 20MG/2ML VIAL IV SCH (09:10)
[2017-11-09 09:13] VITALS: BP 110/65
[2017-11-09 09:38] LABS: BASOPHILS % 0.7 % (0.0-2.0); EOSINOPHILS % 2.6 % (0.0-5.0); HEMATOCRIT. 32.8 % (36.0-48.0); HEMOGLOBIN. 10.5 g/dL (12.0-16.0); LYMPHOCYTES % 31.1 % (20.0-50.0); MEAN CORPUSCULAR VOLUME 87.6 fL (81.0-99.0); MEAN PLATELET VOLUME 8.1 fl (7.4-10.4); MONOCYTES % 13.1 % (2.0-8.0); NEUTROPHILS % 52.5 % (40.0-76.0); PLATELET 379 x1000/uL (130-400); RED BLOOD CELL COUNT 3.74 mill/uL (4.2-5.4); RED CELL DISTRIBUTION WIDTH 14.8 % (11.6-14.6)
[2017-11-09] MEDS ORDERED: LEVOFLOXACIN 500MG PREMIX 100 ML IV NR (10:30)
[2017-11-11] MEDS ORDERED: LEVOFLOXACIN 250MG PREMIX 50 ML IV SCH (09:00)
== END 2017-11-09 09:55 | disposition home or self-care (01) | DRG 291 ==
LOC: ER 01:03 → 7WST 03:17 → ENRESERV 07:26
PROVIDERS: ADMIT Internal Medicine Geriatric Medicine; ATTEND Internal Medicine Geriatric Medicine
PROC: 02HV33Z Insertion of Infusion Device into Superior Vena Cava, Percutaneous Approach (ICD-10-PCS; principal; 2017-11-07)
PROC: B548ZZA Ultrasonography of Superior Vena Cava, Guidance (ICD-10-PCS; 2017-11-07)
PROC: 5A1D70Z Performance of Urinary Filtration, Intermittent, Less than 6 Hours Per Day (ICD-10-PCS; 2017-11-07)
DX: I13.2 Hypertensive heart and chronic kidney disease with heart failure and with stage 5 chronic kidney disease, or end stage renal disease (principal); I50.33 Acute on chronic diastolic (congestive) heart failure; N18.6 End stage renal disease; E11.22 Type 2 diabetes mellitus with diabetic chronic kidney disease; Z93.0 Tracheostomy status; J44.9 Chronic obstructive pulmonary disease, unspecified; D63.1 Anemia in chronic kidney disease; I25.10 Atherosclerotic heart disease of native coronary artery without angina pectoris; D50.9 Iron deficiency anemia, unspecified; E78.5 Hyperlipidemia, unspecified; G89.4 Chronic pain syndrome; R56.9 Unspecified convulsions; I25.2 Old myocardial infarction; Z79.82 Long term (current) use of aspirin; Z79.899 Other long term (current) drug therapy; Z82.49 Family history of ischemic heart disease and other diseases of the circulatory system; Z86.73 Personal history of transient ischemic attack (TIA), and cerebral infarction without residual deficits; Z87.891 Personal history of nicotine dependence; Z95.1 Presence of aortocoronary bypass graft; Z99.2 Dependence on renal dialysis; Z86.19 Personal history of other infectious and parasitic diseases; Z88.8 Allergy status to other drugs, medicaments and biological substances; Z88.6 Allergy status to analgesic agent; Z91.041 Radiographic dye allergy status; Z91.013 Allergy to seafood
CPT/HCPCS: 36415; 36569; 71045; 76937; 77001; 80048; 80053; 80305; 81003; 82270; 82553; 83880; 84484; 85025; 85610; 85730; 87086; 93005; 93970; 96374; 96375; 99285; C1725; C1893; J1644; J1650; J1956; J3490; J7030; J7620

== ENCOUNTER 2017-11-24 08:32 | Inpatient (IN) | payer MEDICARE, OTHER ==
[~2017-11-24] VITALS: Ht 152.4 cm; Wt 63.5 kg
[~2017-11-24 08:32] MED LIST changes: -CETI5TAB5 PO; -DEXL60CA3 PO
[2017-11-24 10:22] LABS: PROTHROMBIN TIME 10.4 sec (9.4-11.6)
[2017-11-24 10:23] LABS: BASOPHILS % 0.5 % (0.0-2.0); EOSINOPHILS % 1.5 % (0.0-5.0); LYMPHOCYTES % 14.1 % (20.0-50.0); MEAN CORPUSCULAR HEMOGLOBIN 27.6 pg (28.0-32.0); MEAN CORPUSCULAR VOLUME 87.2 fL (81.0-99.0); MEAN PLATELET VOLUME 8.6 fl (7.4-10.4); MONOCYTES % 10.8 % (2.0-8.0); NEUTROPHILS % 73.1 % (40.0-76.0); PLATELET 355 x1000/uL (130-400); RED BLOOD CELL COUNT 4.36 mill/uL (4.2-5.4); RED CELL DISTRIBUTION WIDTH 15.7 % (11.6-14.6)
[2017-11-24 10:26] LABS: CHLORIDE 107 mEq/L (98-107)
[2017-11-24 10:31] LABS: TROPONIN I 0.06 ng/mL (0.00-0.04)
[2017-11-24] MEDS ORDERED: REGADENOSON 0.4 MG/5 ML IV NR (15:15)
[2017-11-24] MEDS ORDERED: NITROGLYCERIN OINT 1GM/INCH UDPKT TD NR (15:42)
[2017-11-24] MEDS ORDERED: AMLODIPINE 5MG TABLET PO NR (15:43)
[2017-11-24 16:39] VITALS: BP 216/73
[2017-11-24 17:00] VITALS: BP 155/65
[2017-11-24] MEDS ORDERED: ZOLPIDEM TARTRATE 5MG TABLET PO PRN (17:45)
[2017-11-24] MEDS: HYDROCODONE/ACETAMINOPHEN 5/325MG TABLET PO PRN (18:36)
[2017-11-24 19:06] LABS: BG BASE EXCESS -4.7 mmol/L (-2.0-2.0); BG CARBOXYHEMOGLOBIN 0.7 % (0.5-1.5); BG DEOXYHEMOGLOBIN 7.7 % (0.0-5.0); BG FRACTION INSPIRED OXYGEN 21; BG HCO3 ACT 20.1 mmol/L (22.0-26.0); BG METHEMOGLOBIN 0.3 % (0.0-1.5); BG OXYGEN SATURATION 92.2 % (92.0-98.5); BG OXYHEMOGLOBIN 91.3 % (94.0-97.0); BG PCO2 35.9 mmHg (35.0-45.0); BG PH 7.365 (7.350-7.450); BG PO2 66.8 mmHg (75.0-100.0); BG SAMPLE SITE RIGHT BRACHIAL; BG TOTAL HEMOGLOBIN 12.3 g/dL (12.0-18.0); BG VENT MODE ROOM AIR
[2017-11-24 20:00] VITALS: BP 174/66
[2017-11-24] MEDS ORDERED: ATORVASTATIN CALCIUM 10MG TABLET PO SCH (21:00)
[2017-11-24] MEDS ORDERED: FAMOTIDINE 20MG TABLET PO SCH (21:00)
[2017-11-24] MEDS: PHENYTOIN SODIUM EXTENDED 100MG CAPSULE PO SCH (22:00)
[2017-11-24] MEDS ORDERED: HEPARIN SODIUM 1,000 UNIT/1ML VIAL IV NR (22:27)
[2017-11-24] MEDS: NITROGLYCERIN OINT 1GM/INCH UDPKT TD SCH (22:28)
[2017-11-25] VITALS (7 sets, daily range): BP systolic 131–168; BP diastolic 66–76
[2017-11-25] MEDS: AMLODIPINE 5MG TABLET PO SCH ×2 (00:04→08:46)
[2017-11-25] MEDS: PHENYTOIN SODIUM EXTENDED 100MG CAPSULE PO SCH ×2 (06:00→13:27)
[2017-11-25] MEDS: NITROGLYCERIN OINT 1GM/INCH UDPKT TD SCH ×2 (06:03→13:26)
[2017-11-25 07:35] LABS: BASOPHILS % 0.6 % (0.0-2.0); EOSINOPHILS % 2.6 % (0.0-5.0); HEMATOCRIT. 37.1 % (36.0-48.0); LYMPHOCYTES % 22.1 % (20.0-50.0); MEAN CORPUSCULAR HEMOGLOBIN 27.8 pg (28.0-32.0); MEAN CORPUSCULAR VOLUME 85.8 fL (81.0-99.0); MEAN PLATELET VOLUME 8.6 fl (7.4-10.4); MONOCYTES % 11.7 % (2.0-8.0); PLATELET 343 x1000/uL (130-400); RED BLOOD CELL COUNT 4.32 mill/uL (4.2-5.4); RED CELL DISTRIBUTION WIDTH 15.2 % (11.6-14.6)
[2017-11-25 07:48] LABS: TROPONIN I 0.14 ng/mL (0.00-0.04)
[2017-11-25] MEDS ORDERED: ASPIRIN 81MG EC TABLET PO SCH (09:00)
[2017-11-25] MEDS ORDERED: REGADENOSON 0.4 MG/5 ML IV ONE (12:21)
[2017-11-25] MEDS ORDERED: NITROGLYCERIN 0.4MG TABLET SL SL ONE (12:33)
[2017-11-25] MEDS ORDERED: NITROGLYCERIN 0.4MG TABLET SL SL PRN (12:45)
[2017-11-25] MEDS: HYDROCODONE/ACETAMINOPHEN 5/325MG TABLET PO PRN (13:27)
== END 2017-11-25 15:20 | disposition home or self-care (01) | DRG 205 ==
LOC: ER 08:39 → 6WST 08:40 → ENRESERV 13:28
PROVIDERS: ADMIT Internal Medicine Geriatric Medicine; ATTEND Internal Medicine Geriatric Medicine
DX: M94.0 Chondrocostal junction syndrome [Tietze] (principal); N17.0 Acute kidney failure with tubular necrosis; I13.2 Hypertensive heart and chronic kidney disease with heart failure and with stage 5 chronic kidney disease, or end stage renal disease; E46 Unspecified protein-calorie malnutrition; N18.6 End stage renal disease; E87.5 Hyperkalemia; J44.9 Chronic obstructive pulmonary disease, unspecified; I25.5 Ischemic cardiomyopathy; I25.10 Atherosclerotic heart disease of native coronary artery without angina pectoris; K21.9 Gastro-esophageal reflux disease without esophagitis; K74.60 Unspecified cirrhosis of liver; B19.20 Unspecified viral hepatitis C without hepatic coma; M19.90 Unspecified osteoarthritis, unspecified site; E78.5 Hyperlipidemia, unspecified; G89.4 Chronic pain syndrome; F32.9 Major depressive disorder, single episode, unspecified; D50.9 Iron deficiency anemia, unspecified; K64.9 Unspecified hemorrhoids; D63.1 Anemia in chronic kidney disease; G40.909 Epilepsy, unspecified, not intractable, without status epilepticus; F41.1 Generalized anxiety disorder; I50.9 Heart failure, unspecified; Z87.891 Personal history of nicotine dependence; Z99.2 Dependence on renal dialysis; Z95.1 Presence of aortocoronary bypass graft; I25.2 Old myocardial infarction; Z86.12 Personal history of poliomyelitis; Z82.49 Family history of ischemic heart disease and other diseases of the circulatory system; Z86.718 Personal history of other venous thrombosis and embolism; Z88.6 Allergy status to analgesic agent; Z88.5 Allergy status to narcotic agent; Z91.013 Allergy to seafood; Z88.8 Allergy status to other drugs, medicaments and biological substances; Z91.048 Other nonmedicinal substance allergy status; Z79.899 Other long term (current) drug therapy; Z90.49 Acquired absence of other specified parts of digestive tract; Z91.018 Allergy to other foods; Z68.27 Body mass index [BMI] 27.0-27.9, adult
CPT/HCPCS: 36415; 36600; 71045; 78452; 80048; 80053; 80185; 82270; 82375; 82805; 83880; 84484; 85025; 85610; 93005; 93017; 93970; 97116; 97162; 99285; A9500; J1644; J2785